=== PATIENT | female | born 1995 | race Caucasian/White ===

== ENCOUNTER 2018-04-04 20:49 | Emergency (ER) | payer OTHER ==
[2018-04-04 21:57] LABS: Urine Blood 1+ (NEG); Urine Glucose NEGATIVE (NEG); Urine Protein NEGATIVE (NEG)
--- NOTE | 2018-04-04 23:00 | EDPHYS ---
Physician Documentation [facility] Name: Alison Wilson Age: 22 yrs Sex: Female : 1995 Arrival Date: 04/04/2018 Time: 20:51 Bed 17 Private MD: ED Physician Mauricio Samaniego HPI: 04/04 21:14 This 22 yrs old Female presents to ER via Ambulatory with complaints of Fever.ps1 21:14 patient has recent diagnosis of melanoma to right perioral area. She is supposed to ps1 have surgery on April 21. Instructed to only take tylenol. She has had fever tmax 103, body aches, sinus congestion, headache for 2 days [employer]. Taking tylenol. No other symptoms. . 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 - Social history:: Smoking status: Patient/guardian denies using tobacco. - Ebola Screening: : Patient negative for fever greater than or equal to 101.5 degrees Fahrenheit, and additional compatible Ebola Virus Disease symptoms Patient denies exposure to infectious person Patient denies travel to an Ebola-affected area in the 21 days before illness onset No symptoms or risks identified at this time. ROS: 21:14 Cardiovascular: Negative for chest pain, palpitations, and edema, Respiratory: Negative ps1 for shortness of breath, cough, wheezing, and pleuritic chest pain, Abdomen/GI: Negative for abdominal pain, nausea, vomiting, diarrhea, and constipation. 21:14 MS/Extremity: Negative for injury and deformity, Skin: Negative for injury, rash, and discoloration, Neuro: Negative for headache, weakness, numbness, tingling, and seizure. 21:14 Constitutional: Positive for chills, fatigue, fever. 21:14 Constitutional: Positive for body aches. Exam: 21:14 Constitutional: This is a well developed, well nourished patient who is awake, alert, ps1 and in no acute distress. Head/Face: Normocephalic, atraumatic. Eyes: Pupils equal round and reactive to light, extra-ocular motions intact. Lids and lashes normal. Conjunctiva and sclera are non-icteric and not injected. Chest/axilla: Normal chest wall appearance and motion. Nontender with no deformity. No lesions are appreciated. Cardiovascular: Regular rate and rhythm. No gallops, murmurs, or rubs. Normal PMI, no JVD. No pulse deficits. Respiratory: Lungs have equal breath sounds bilaterally, clear to auscultation and percussion. No rales, rhonchi or wheezes noted. No increased work of breathing, no retractions or nasal flaring. Abdomen/GI: Soft, non-tender, with normal bowel sounds. No distension or tympany. No guarding or rebound. No evidence of tenderness throughout. Skin: Warm, dry with normal turgor. Normal color with no rashes, no lesions, and no evidence of cellulitis. MS/ Extremity: Pulses equal, no cyanosis. Neurovascular intact. Full, normal range of motion. Neuro: Awake and alert, GCS 15, oriented to person, place, time, and situation. Cranial nerves II-XII grossly intact. Sensory grossly intact. 21:14 Back: pain, that is mild, of the left scapular area, right scapular area and left mid back. Vital Signs: 20:56 BP 141 / 84; Pulse 138; Resp 20; Temp 100.4; Pulse Ox 98% on R/A; Weight 61.23 kg; aj Height 5 ft. 1 in. (154.94 cm); 22:35 BP 116 / 79; Pulse 110; Resp 18 S; Temp 99.7(O); Pulse Ox 95% on R/A; jd3 20:56 Body Mass Index 25.51 (61.23 kg, 154.94 cm) aj MDM: 21:13 Patient medically screened. ps1 04/04 21:21 Order name: Strep ps1 04/04 21:21 Order name: Influenza Screen (a \T\ B) ps1 04/04 21:22 Order name: Group A Streptococcus Rapid Sc; Complete Time: 21:54 EDMS 04/04 21:22 Order name: Influenza Screen (A ; Complete Time: 21:54 EDMS 04/04 21:34 Order name: Urine Dipstick--Ancillary (enter results); Complete Time: 21:58 ms 04/04 21:37 Order name: Urine --Ancillary (enter results); Complete Time: 21:57 ms 04/04 21:21 Order name: Lumbar Spine (3 Views) XRAY ps1 04/04 21:51 Order name: Throat Culture EDMS 04/04 22:31 Order name: Urine Microscopic Only; Complete Time: 23:10 ms 04/04 23:10 Order name: Urine Culture EDMS Administered Medications: No medications were administered Disposition: 04/04/18 22:59 Discharged to Home. Impression: viral syndrome, UTI. - Condition is Stable. - Discharge Instructions: Urinary Tract Infection, Adult, Fever, Adult, [id number]. - Prescriptions for Keflex 500 mg Oral Capsule - take 1 capsule by ORAL route every 8 hours for 10 days; 30 capsule. - Medication Reconciliation Form, Thank You Letter, Antibiotic Education, Prescription Opioid Use form. - Follow up: Private Physician; When: As needed; Reason: Recheck today's complaints, Continuance of care, Re-evaluation by your physician. Follow up: Emergency Department; When: As needed; Reason: Fever > 102 F, Worsening of condition, urinary retention or numbness between the legs. - Problem is new. - Symptoms are unchanged. Signatures: Dispatcher [employer] EDMarcia Mercado RN RN aj Davies, Jonathon, RN RN jd3 Singer, Phillip, MD MD ps1 Corrections: (The following items were deleted from the chart) 23:11 22:59 04/04/2018 22:59 Discharged to Home. Impression: viral syndrome. Condition is ps1 Stable. Forms are Medication Reconciliation Form, Thank You Letter, Antibiotic Education, Prescription Opioid Use. Follow up: Private Physician; When: As needed; Reason: Recheck today's complaints, Continuance of care, Re-evaluation by your physician. Follow up: Emergency Department; When: As needed; Reason: Fever > 102 F, Worsening of condition, urinary retention or numbness between the legs. Problem is new. Symptoms are unchanged. ps1 23:26 23:11 04/04/2018 22:59 Discharged to Home. Impression: viral syndrome; UTI. Condition jd3 is Stable. Discharge Instructions: Fever, Adult, [id number]. Forms are Medication Reconciliation Form, Thank You Letter, Antibiotic Education, Prescription Opioid Use. Follow up: Private Physician; When: As needed; Reason: Recheck today's complaints, Continuance of care, Re-evaluation by your physician. Follow up: Emergency Department; When: As needed; Reason: Fever > 102 F, Worsening of condition, urinary retention or numbness between the legs. Problem is new. Symptoms are unchanged. ps1
--- NOTE | 2018-04-04 23:00 | ER ---
Nurse's Notes [facility] Name: Alison Wilson Age: 22 yrs Sex: Female : 1995 Arrival Date: 04/04/2018 Time: 20:51 Bed 17 Private MD: Diagnosis: viral syndrome;UTI Presentation: 04/04 20:54 Presenting complaint: Patient states: Fever and back pain today. Transition of care: aj patient was not received from another setting of care. Onset of symptoms was April 04, 2018. Risk Assessment: Do you want to hurt yourself or someone else? Patient reports no desire to harm self or others. Initial Sepsis Screen: Does the patient meet any 2 criteria? Temp <36.0*C (96.8*F)) or > 38.3*C (100.4*F). HR > 90 bpm. Yes Does the patient have a suspected source of infection? No. Patient's initial sepsis screen is negative. 20:54 Method Of Arrival: Ambulatory 20:54 Acuity: ALESSANDRA 3 20:57 Care prior to arrival: Medication(s) given: Tylenol, 650 mg. Triage Assessment: 20:56 General: Appears in no apparent distress. comfortable, Behavior is calm, cooperative, aj appropriate for age. Pain: Complains of pain in left scapular area, right scapular area, thoracic area and low back area. Neuro: Level of Consciousness is awake, alert, obeys commands, Oriented to person, place, time, situation, Appropriate for age. Respiratory: Airway is patent Respiratory effort is even, unlabored, Respiratory pattern is regular, symmetrical. : Denies burning with urination. Derm: Skin is intact, is healthy with good turgor, Skin is normal, Skin temperature is hot. 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 - Social history:: Smoking status: Patient/guardian denies using tobacco. - Ebola Screening: : Patient negative for fever greater than or equal to 101.5 degrees Fahrenheit, and additional compatible Ebola Virus Disease symptoms Patient denies exposure to infectious person Patient denies travel to an Ebola-affected area in the 21 days before illness onset No symptoms or risks identified at this time. Screenin:32 Abuse screen: Denies threats or abuse. Nutritional screening: No deficits noted. jd3 Tuberculosis screening: No symptoms or risk factors identified. Fall Risk Ambulatory Aid- None/Bed Rest/Nurse Assist (0 pts). Gait- Normal/Bed Rest/Wheelchair (0 pts) Mental Status- Oriented to own ability (0 pts). Total Dai Fall Scale indicates No Risk (0-24 pts). Assessment: 21:25 General: Appears in no apparent distress. Behavior is calm, cooperative, appropriate jd3 for age, Reports fever for. Pain: Complains of pain in generalized Quality of pain is described as aching, Pain began 1 day ago. Neuro: Level of Consciousness is awake, alert, obeys commands, Oriented to person, place, time, situation, Appropriate for age. Cardiovascular: Capillary refill < 3 seconds Patient's skin is warm and dry. Respiratory: Airway is patent Respiratory effort is even, unlabored, Respiratory pattern is regular, symmetrical, Denies cough, shortness of breath. GI: No signs and/or symptoms were reported involving the gastrointestinal system. : No signs and/or symptoms were reported regarding the genitourinary system. EENT: No signs and/or symptoms were reported regarding the EENT system. Derm: Skin is intact, Skin is dry, Skin is normal, Skin temperature is warm. Musculoskeletal: Circulation, motion, and sensation intact. Range of motion: intact in all extremities. 22:36 Reassessment: Patient appears in no apparent distress at this time. Patient and/or jd3 family updated on plan of care and expected duration. Pain level reassessed. Patient is alert, oriented x 3, equal unlabored respirations, skin warm/dry/pink. 23:25 Reassessment: Patient appears in no apparent distress at this time. Patient and/or jd3 family updated on plan of care and expected duration. Pain level reassessed. Patient is alert, oriented x 3, equal unlabored respirations, skin warm/dry/pink. Patient states feeling better. Vital Signs: 20:56 BP 141 / 84; Pulse 138; Resp 20; Temp 100.4; Pulse Ox 98% on R/A; Weight 61.23 kg; aj Height 5 ft. 1 in. (154.94 cm); 22:35 BP 116 / 79; Pulse 110; Resp 18 S; Temp 99.7(O); Pulse Ox 95% on R/A; jd3 20:56 Body Mass Index 25.51 (61.23 kg, 154.94 cm) ED Course: 20:51 Patient arrived in ED. ds1 20:55 Triage completed. aj 20:56 Arm band placed on right wrist. Patient placed in an exam room. aj 20:58 Mauricio Samaniego MD is Attending Physician. ps1 21:06 Cole Prescott, RN is Primary Nurse. jd3 21:32 Patient has correct armband on for positive identification. Bed in low position. Call j light in reach. Side rails up X 1. Adult w/ patient. 21:32 Influenza Screen (A Sent. jd3 21:32 Strep Sent. jd3 21:32 Influenza Screen (a \T\ B) Sent. jd3 21:32 Group A Streptococcus Rapid Sc Sent. jd3 22:14 Lumbar Spine (3 Views) XRAY In Process Unspecified. EDMS 22:14 Throat Culture Sent. cc 23:25 No provider procedures requiring assistance completed. Patient did not have IV access jd3 during this emergency room visit. Administered Medications: No medications were administered Outcome: 22:59 Discharge ordered by . ps1 23:26 Discharged to home ambulatory, with friend. jd3 23:26 Condition: stable 23:26 Discharge instructions given to patient, friend, Instructed on discharge instructions, follow up and referral plans. medication usage, Demonstrated understanding of instructions, follow-up care, medications, Prescriptions given X 1. 23:26 Patient left the ED. jd3 Signatures: Dispatcher [employer] EDMS Marcia Webb, RN RN Sylvia Lloyd ds1 Lissette Urena Cole Prescott RN RN jd3 Singer, Phillip, MD MD ps1 Corrections: (The following items were deleted from the chart) 20:57 20:54 Care prior to arrival: None. aj aj
[2018-04-04 23:07] LABS: Urine Bacteria 20-50 /HPF (<20); Urine Culture Reflex Order REFLEXED
[2018-04-04 23:09] LABS: Urine RBC NONE SEEN /HPF (NONE SEEN)
--- NOTE | 2018-04-05 07:48 | RAD REPORT ---
EXAM DESCRIPTION: RAD - Lumbar Spine 3 Views - 04/04/2018 10:17 pm CLINICAL HISTORY: Back pain FINDINGS: The alignment of the lumbar spine is satisfactory. No fracture or dislocation is seen. Mild scoliosis involves the thoracolumbar spine
== END 2018-04-04 23:26 | disposition home or self-care (01) ==
LOC: ER 20:49
DX: B34.9 Viral infection, unspecified (principal); N39.0 Urinary tract infection, site not specified; C43.9 Malignant melanoma of skin, unspecified
CPT/HCPCS: 72100; 81003; 81015; 81025; 87070; 87081; 87086; 87088; 87804; 99283

== ENCOUNTER 2020-10-10 11:55 | Emergency (ER) | payer SELFPAY ==
--- OUTSIDE RECORDS SUMMARY | 2020-10-10 11:58 | XMS REPORT | Continuity of Care Document ---
:1995 Author Organization [facility] t Address [address] [place] [address] Care Team Providers Name Role Phone Yan LIND Primary Care Physician Unavailable Yan LIND Attending Clinician Unavailable Vicente PALUMBO I Attending Clinician Nasir Izquierdo MD Attending Clinician Flaquito ERNANDEZ Attending Clinician Payers Payer Name Policy Type Policy Number Effective Date Expiration Date Ryan ARAUJO [facility] [id number] 2018 00:00:00 Problems Condition Condition Condition Status Onset Resolution Last Treating Co mments Source Name Details Category Date Date Treatment Clinician Date Hypertroph Hypertroph Disease Active Overview : ic ic 8-05 Added Andnicko surgical surgical 00:00: automatic n scar scar 00 ally from request for surgery [id number] Malignant Malignant Disease Active Overview: melanoma melanoma 8-13 Lizandro Gilbert o of lip of lip 00:00: automatic n 00 ally from request for surgery [id number] Melanoma Melanoma Disease Active in situ of in situ of 7-10 An derso lip lip 00:00: n 00 Allergies, Adverse Reactions, Alerts This patient has no known allergies or adverse reactions. Social History Social Habit Start Date Stop Date Quantity Comments Source Sex Assigned At MD Hunt on Alcohol intake 2019-06-13 2019-06-13 Current drinker MD Merry pennington 00:00:00 00:00:00 of alcohol (finding) Tobacco use and 2019-06-13 2019-06-13 Never used MD Hunt on exposure 00:00:00 00:00:00 Alcohol Comment 2019-05-20 2019-05-20 last drink: Shaes MD Owen 00:00:00 00:00:00 05/17 Smoking Status Start Date Stop Date Source Never smoker MD Owen Medications Ordered Filled Start Stop Current Ordering Indication Dosage Frequency Signature Comments Components Source Medication Medication Date Date Medication? Clinician (SIG) Name Name acetaminoph Yes 325mg Take 325 M D en 6-15 mg by Anderso (TYLENOL) 14:45: mouth n 325 mg 50 every 4 tablet (four) hours as needed for mild pain. ferrous Yes 325mg Take 325 MD sulfate 325 6-15 mg by Anderso mg (65 mg 14:45: mouth n elemental 50 daily. iron per tablet) tablet acetaminoph 2018-08 Yes Hypertrophi 1{tbl} Take 1 en-codeine 0-08 c surgical tablet by Hudson (TYLENOL-CO 00:00: scar mouth n DEINE #3) 00 twice 300 mg-30 daily. mg tablet mupirocin 2018-08 Yes Hypertrophi Apply (BACTROBAN) 0-04 c surgical topically Anderso 2% ointment 00:00: scar to n 00 affected area(s) twice daily. Apply to right cheek incision Vital Signs Vital Name Observation Time Observation Value Comments Source Systolic blood pressure 2020-04-03 18:11:18 121 mm[Hg] MD Owen Diastolic blood pressure 2020-04-03 18:11:18 81 mm[Hg] MD Owen Heart rate 2020-04-03 18:11:18 82 /min MD Lugo son Body temperature 2020-04-03 18:11:18 36.78 Catarina MD Aline newman Respiratory rate 2020-04-03 18:11:18 16 /min MD Aline newman Oxygen saturation in 2020-04-03 18:11:18 100 /min MD Owen Arterial blood by Pulse oximetry Procedures This patient has no known procedures. Encounters Start End Encounter Admission Attending Care Care Encounter Source Date/Time Date/Time Type Type Clinicians Facility Department ID 2020-04-03 2020-04-03 Outpatient ASHLEY LIND MDA MDA [id number] 12:36:18 14:58:07 [email or web address] spear Results This patient has no known results.
--- NOTE | 2020-10-10 13:29 | RAD REPORT ---
EXAM DESCRIPTION: RAD - Chest Single View - 10/10/2020 1:20 pm CLINICAL HISTORY: Cough;Congestion Chest pain. COMPARISON: No comparisons FINDINGS: Portable technique limits examination quality. Interstitial lung markings are mildly prominent suggesting underlying viral pneumonitis. The heart is normal in size. No displaced fractures.
[2020-10-10] MEDS ORDERED: NA CHLORIDE 0.9% 1,000 ML ONE (14:33)
[2020-10-10 14:42] LABS: Absolute Lymphocytes (CBC) 1.1 K/uL (0.7-4.9); Basophils % 0.7 % (0-1.3); Hematocrit 35.1 % (36.0-45.0); MPV 9.5 fL (7.6-11.3); RBC Red Blood Cell Count 4.56 M/uL (3.86-4.86)
[2020-10-10 15:25] LABS: SARS-COV-2 RT PCR NEGATIVE (NEGATIVE)
[2020-10-10 15:47] LABS: BUN Blood Urea Nitrogen 10 mg/dL (7-18); Bicarbonate 24 mmol/L (21-32); Glucose Level 103 mg/dL (74-106); Potassium 3.6 mmol/L (3.5-5.1); Sodium Level 139 mmol/L (136-145)
--- NOTE | 2020-10-10 16:32 | RAD REPORT ---
EXAM DESCRIPTION: CT - Chest For Pe Angio - 10/10/2020 4:21 pm CLINICAL HISTORY: Chest pain. CHEST PAIN COMPARISON: No comparisons TECHNIQUE: CT angiogram of the pulmonary arteries was performed with MIP. All CT scans are performed using dose optimization technique as appropriate and may include automated exposure control or mA/KV adjustment according to patient size. FINDINGS: No evidence of pulmonary thromboembolism. No acute aortic finding demonstrated. The lungs are clear. No significant pericardial or pleural fluid. No concerning bony finding. IMPRESSION: No evidence of pulmonary thromboembolism. No acute lung findings.
--- NOTE | 2020-10-10 16:41 | EDPHYS ---
Physician Documentation [facility] Name: Alison Wilson Age: 25 yrs Sex: Female : 1995 Arrival Date: 10/10/2020 Time: 12:00 Bed 17 Private MD: ED Physician Ray Jimenez HPI: 10/10 15:15 This 25 yrs old Female presents to ER via Ambulatory with complaints of kb Cough, Congestion, Chest Pain. 15:15 The patient or guardian reports cough, that is intermittent, described as mild, with no kb sputum, flu symptoms, low-grade fever, myalgias. Severity of symptoms: At their worst the symptoms were moderate, in the emergency department the symptoms are unchanged. The patient has not experienced similar symptoms in the past. The patient has not recently seen a physician. 15:16 Onset: The symptoms/episode began/occurred 1 week(s) ago. Modifying factors: The kb symptoms are alleviated by nothing, the symptoms are aggravated by nothing. Associated signs and symptoms: Pertinent positives: chest pain, with cough, fever, rhinorrhea. Pt reports cough, congestion, chest pain with cough, fever, malaise for a week. States she had COVID in June. [employer] ALTERATION: 12:39 LMP 10/06/2020 ca1 Historical: - Allergies: 12:39 No Known Allergies; ca1 - Home Meds: 12:39 None [Active]; ca1 - PMHx: 12:39 melanoma; ca1 - PSHx: 12:39 face surgery; ca1 - Immunization history:: Flu vaccine is not up to date. Patient has never been vaccinated. - Social history:: Smoking status: Patient denies any tobacco usage or history of. ROS: 15:14 Abdomen/GI: Negative for abdominal pain, nausea, vomiting, diarrhea, and constipation, kb MS/Extremity: Negative for injury and deformity, Skin: Negative for injury, rash, and discoloration, Neuro: Negative for headache, weakness, numbness, tingling, and seizure. 15:14 Constitutional: Positive for chills, fatigue, fever, malaise. 15:14 ENT: Positive for sinus congestion. 15:14 Cardiovascular: Positive for chest pain, with cough, Negative for edema, orthopnea, palpitations, paroxysmal nocturnal dyspnea. 15:14 Respiratory: Positive for cough, Negative for dyspnea on exertion, hemoptysis, orthopnea, pleurisy, shortness of breath, sputum production, wheezing. Exam: 15:14 Constitutional: This is a well developed, well nourished patient who is awake, alert, kb and in no acute distress. Head/Face: Normocephalic, atraumatic. ENT: Nares patent. No nasal discharge, no septal abnormalities noted. Tympanic membranes are normal and external auditory canals are clear. Oropharynx with no redness, swelling, or masses, exudates, or evidence of obstruction, uvula midline. Mucous membranes moist. Skin: Warm, dry with normal turgor. Normal color with no rashes, no lesions, and no evidence of cellulitis. MS/ Extremity: Pulses equal, no cyanosis. Neurovascular intact. Full, normal range of motion. 15:14 Cardiovascular: Rate: tachycardic, Rhythm: regular. 15:14 Respiratory: the patient does not display signs of respiratory distress, Respirations: normal, Breath sounds: are clear throughout. 15:14 Neuro: Orientation: is normal, to person, place, time \T\ situation. Mentation: is normal, able to follow commands, Motor: is normal, moves all fours, Gait: is steady, without difficulty. Vital Signs: 12:35 BP 137 / 92; Pulse 130; Resp 18 S; Temp 99.5(O); Pulse Ox 100% on R/A; Weight 65.77 kg ca1 (R); Height 5 ft. 0 in. (152.40 cm) (R); Pain 0/10; 13:54 BP 119 / 81 Supine; Pulse 126; Resp 16; Pulse Ox 99% on R/A; mh5 13:56 BP 125 / 98 Sitting; Pulse 137; Resp 17; Pulse Ox 100% on R/A; mh5 13:58 BP 111 / 80 Standing; Pulse 150; Resp 17; Pulse Ox 98% on R/A; mh5 14:31 BP 123 / 84; Pulse 107; Resp 18; Temp 100.8(O); Pulse Ox 94% on R/A; mh5 15:30 BP 110 / 76; Pulse 115; Resp 17; Pulse Ox 100% ; bp 17:00 BP 115 / 74; Pulse 100; Resp 17; Temp 98; Pulse Ox 100% ; bp 12:35 Body Mass Index 28.32 (65.77 kg, 152.40 cm) ca1 MDM: 12:37 Patient medically screened. kb 15:13 Data reviewed: vital signs, nurses notes. Data interpreted: Pulse oximetry: on room air kb is 94 %. Interpretation: acceptable. 16:40 Counseling: I had a detailed discussion with the patient and/or guardian regarding: the kb historical points, exam findings, and any diagnostic results supporting the discharge/admit diagnosis, lab results, radiology results, the need for outpatient follow up, a family practitioner, to return to the emergency department if symptoms worsen or persist or if there are any questions or concerns that arise at home. 10/10 14:05 Order name: CBC with Diff; Complete Time: 14:50 kb 10/10 14:05 Order name: Basic Metabolic Panel; Complete Time: 15:49 kb 10/10 14:05 Order name: D-Dimer; Complete Time: 14:52 kb 10/10 15:25 Order name: COVID-19/FLU A+B; Complete Time: 15:39 EDMS 10/10 12:30 Order name: Chest Single View XRAY; Complete Time: 13:38 kb 10/10 13:39 Order name: Orthostatics; Complete Time: 14:05 kb 10/10 14:05 Order name: IV Start; Complete Time: 14:30 kb 10/10 14:51 Order name: CT Chest For PE Angio; Complete Time: 16:37 kb 10/10 14:52 Order name: Labs - recollect needed: recollect c7; Complete Time: 15:03 bd Administered Medications: 14:30 Drug: NS 0.9% 1000 ml Route: IV; Rate: 1000 ml; Site: right antecubital; bp 17:14 Follow up: IV Status: Completed infusion; IV Intake: 1000ml bp Disposition: 17:59 Co-signature as Attending Physician, Ray Jimenez MD. rn Disposition: 10/10/20 16:41 Discharged to Home. Impression: Acute upper respiratory infection, unspecified. - Condition is Stable. - Discharge Instructions: Upper Respiratory Infection, Adult, Uhsh-ky-Vges, Viral Respiratory Infection, [id number]. - Medication Reconciliation Form, Thank You Letter, Antibiotic Education, Prescription Opioid Use form. - Follow up: Emergency Department; When: As needed; Reason: Worsening of condition. Follow up: Private Physician; When: 2 - 3 days; Reason: Recheck today's complaints, Continuance of care, Re-evaluation by your physician. Signatures: Dispatcher [employer] EDNV Saurabh Veronique, [employer]-C [employer]-CkYaz Maravilla Roman, MD MD rn Ky Fuller, RN RN bp Acmikaela, Kary RN RN ca1 Corrections: (The following items were deleted from the chart) 14:32 12:31 Influenza Screen (A \T\ B)+BA.LAB.BRZ ordered. EDNV EDMS 14:32 12:31 CORONAVIRUS+MR.LAB.BRZ ordered. EDNV EDMS 17:17 16:41 10/10/2020 16:41 Discharged to Home. Impression: Acute upper respiratory bp infection, unspecified. Condition is Stable. Forms are Medication Reconciliation Form, Thank You Letter, Antibiotic Education, Prescription Opioid Use. Follow up: Emergency Department; When: As needed; Reason: Worsening of condition. Follow up: Private Physician; When: 2 - 3 days; Reason: Recheck today's complaints, Continuance of care, Re-evaluation by your physician. kb
--- NOTE | 2020-10-10 16:41 | ER ---
Nurse's Notes [facility] Name: Alison Wilson Age: 25 yrs Sex: Female : 1995 Arrival Date: 10/10/2020 Time: 12:00 Bed 17 Private MD: Diagnosis: Acute upper respiratory infection, unspecified Presentation: 10/10 12:35 Chief complaint: Patient states: cough, congestion, fever, chest hurts when coughing x ca1 1 week. Coronavirus screen: Client denies travel out of the [place] in the last 14 days. congestion, cough unrelated to allergies, fever, runny nose, Client presents with at least one sign or symptom that may indicate coronavirus-19. Standard/surgical mask placed on the client. Provider contacted for isolation considerations. Client reports previous positive COVID test result. Date of collection: June 2020. Ebola Screen: Patient negative for fever greater than or equal to 101.5 degrees Fahrenheit, and additional compatible Ebola Virus Disease symptoms Patient denies exposure to infectious person. Patient denies travel to an Ebola-affected area in the 21 days before illness onset. No symptoms or risks identified at this time. Initial Sepsis Screen: Does the patient meet any 2 criteria? No. Patient's initial sepsis screen is negative. Does the patient have a suspected source of infection? No. Patient's initial sepsis screen is negative. Risk Assessment: Do you want to hurt yourself or someone else? Patient reports no desire to harm self or others. Onset of symptoms was October 10, 2020. 12:35 Method Of Arrival: Ambulatory ca1 12:35 Acuity: ALESSANDRA 3 ca1 Triage Assessment: 13:40 General: Appears distressed, uncomfortable, ill, Behavior is calm, cooperative, bp appropriate for age. Pain: Complains of pain in chest. EENT: Reports nasal congestion. Neuro: No deficits noted. Cardiovascular: Rhythm is sinus rhythm. Respiratory: Reports shortness of breath cough that is Breath sounds are coarse bilaterally. GI: No signs and/or symptoms were reported involving the gastrointestinal system. : No signs and/or symptoms were reported regarding the genitourinary system. Derm: No deficits noted. Musculoskeletal: No deficits noted. 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 Patient has never been vaccinated. - Social history:: Smoking status: Patient denies any tobacco usage or history of. Screenin:40 Abuse screen: Denies threats or abuse. Denies injuries from another. Nutritional bp screening: No deficits noted. Tuberculosis screening: No symptoms or risk factors identified. Fall Risk None identified. Assessment: 13:40 General: SEE TRIAGE NOTE. bp 15:40 Reassessment: No changes from previously documented assessment. Patient and/or family bp updated on plan of care and expected duration. Pain level reassessed. Patient is alert, oriented x 3, equal unlabored respirations, skin warm/dry/pink. Cardiovascular: Capillary refill < 3 seconds Patient's skin is warm and dry. Respiratory: Airway is patent Respiratory effort is even, unlabored. 17:10 Reassessment: PT D/C HOME AMBULATORY, DX WITH VIRAL URI. Respiratory: Breath sounds are bp coarse bilaterally. Vital Signs: 12:35 BP 137 / 92; Pulse 130; Resp 18 S; Temp 99.5(O); Pulse Ox 100% on R/A; Weight 65.77 kg ca1 (R); Height 5 ft. 0 in. (152.40 cm) (R); Pain 0/10; 13:54 BP 119 / 81 Supine; Pulse 126; Resp 16; Pulse Ox 99% on R/A; mh5 13:56 BP 125 / 98 Sitting; Pulse 137; Resp 17; Pulse Ox 100% on R/A; mh5 13:58 BP 111 / 80 Standing; Pulse 150; Resp 17; Pulse Ox 98% on R/A; mh5 14:31 BP 123 / 84; Pulse 107; Resp 18; Temp 100.8(O); Pulse Ox 94% on R/A; mh5 15:30 BP 110 / 76; Pulse 115; Resp 17; Pulse Ox 100% ; bp 17:00 BP 115 / 74; Pulse 100; Resp 17; Temp 98; Pulse Ox 100% ; bp 12:35 Body Mass Index 28.32 (65.77 kg, 152.40 cm) ca1 ED Course: 12:00 Patient arrived in ED. as 12:29 Veronique Wiley FNP-C [facility] kb 12:29 Ray Jimenez MD is Attending Physician. kb 12:37 Triage completed. ca1 12:39 Arm band placed on right wrist. ca1 13:20 Chest Single View XRAY In Process Unspecified. EDMS 13:34 yK Fuller, RN is Primary Nurse. bp 14:01 Patient has correct armband on for positive identification. Bed in low position. Call [facility] light in reach. Side rails up X 1. Pulse ox on. NIBP on. 14:30 D-Dimer Sent. mh5 14:30 Basic Metabolic Panel Sent. 5 14:31 Initial lab(s) drawn, by nv, sent to lab. Inserted saline lock: 20 gauge in left 5 antecubital area, using aseptic technique. Blood collected. 16:21 CT Chest For PE Angio In Process Unspecified. EDMS 17:00 No provider procedures requiring assistance completed. IV discontinued, intact, bp bleeding controlled, No redness/swelling at site. Pressure dressing applied. Administered Medications: 14:30 Drug: NS 0.9% 1000 ml Route: IV; Rate: 1000 ml; Site: right antecubital; bp 17:14 Follow up: IV Status: Completed infusion; IV Intake: 1000ml bp Intake: 17:14 IV: 1000ml; Total: 1000ml. bp Outcome: 16:41 Discharge ordered by . kb 17:13 Discharged to home ambulatory. bp 17:13 Condition: stable 17:13 Discharge instructions given to patient, Instructed on discharge instructions, follow up and referral plans. Demonstrated understanding of instructions, follow-up care. 17:17 Patient left the ED. bp Signatures: Dispatcher [employer] EDMO Veronique Wiley FNP-C COMMUNICATIONS ASSISTANT-Harriett De La Fuente Maria [facility] [place] Fuller, RN RN bp Kary Quezada RN RN ca1
[2020-10-10 19:30] VITALS: O2SAT 100
[2020-10-10 19:32] VITALS: BP 115/74; TEMP 98
== END 2020-10-10 17:17 | disposition home or self-care (01) ==
LOC: ER 11:55
DX: J06.9 Acute upper respiratory infection, unspecified (principal); Z20.822 Contact with and (suspected) exposure to COVID-19; Z85.820 Personal history of malignant melanoma of skin; Z86.16 Personal history of COVID-19
CPT/HCPCS: 0240U; 36415; 71045; 71275; 80048; 85025; 85379; 96360; 96361; 99284; J7030; Q9967

== ENCOUNTER 2022-08-28 07:09 | Emergency (ER) | payer OTHER, SELFPAY ==
--- OUTSIDE RECORDS SUMMARY | 2022-08-28 07:12 | XMS REPORT | Clinical Summary ---
:1995 Author Organization [facility] MD [facility] Address [address] [place] [address] Care Team Providers Name Role Phone Benjamín Zhang MD Primary Care Provider Allergies No known active allergies Medications Medication Sig Dispensed Refills Start Date End Date Status buPROPion Take 100 mg by 0 12/04/2021 Acti ve (WELLBUTRIN) 100 mouth daily. mg tablet mupirocin Apply 22 g 0 03/01/2021 Discontin ued (BACTROBAN) 2% topically to 2 (T herapy ointmentIndicatio affected co mpleted) ns: Hypertrophic area(s) daily. 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 Encounters Date Type Specialty Care Team Description 12/27/2021 Office Visit Dermatology Handy Moreno MD Scar (Primar y Dx); Melanoma in sit u of lip; Melanocytic nev us of trunk; Lentigo 12/27/2021 Travel 11/12/2021 Office Visit Melanoma Surgery Benjamín Zhang MD Luz chris in situ of lip 11/12/2021 Travel after 08/28/2021 Surgical History Surgery Date Site/Laterality Comments [place] EXCISION MALIGNANT LESION 04/21/2018 Right Pro cedure: EXCISION OF F/E/E/N/L 0.5 CM/< MALIGNANT LES ION OF LIP(S) - wide excision ri ght upper lip; Surgeon: Me neto Zhang MD; Location: [facility]; Service: SURG ON C - MELANOMA W[place] ADJT TIS TRNSFR/REARRGMT 04/23/2018 Right Proc edure: REARRANGEMENT OF E/N/E/L DFCT 10 SQ CM/< ADJACENT TISSUE FOR REPAIR OF DEFECT OF LIP(S) Rylie Murphy vs facial advanceme nt; Surgeon: Kallie brown II, MD; Location: MAIN O R; Service: PLS - PLASTIC [facility] [place] INJECTION INTRALESIONAL UP 02/25/2019 Right Pr ocedure: INTRALESIONAL TO & INCLUD 7 LESIONS INJECTION to right lip lesion- Kenalog 40 and lidocaine 1:100; Surgeon: Kallie brown II, MD; Location[facility]; Service: PLS - PLASTIC [facility] Medical devices from this surgery are in t he Medical Devices section. [place] INJECTION INTRALESIONAL UP 03/25/2019 Face/Right Pr ocedure: INTRALESIONAL TO & INCLUD 7 LESIONS INJECTION of kenalog to right cheek.; Surgeon: Kallie Izquierdo II, MD; Location: [facility]; Service : PLS - PLASTIC SURGERY WY ADJT TIS TRNS/REARGMT 05/20/2019 Right Procedu re: SUBTOTAL EXCISION F/C/C/M/N/A/G/H/F 10SQCM/< OF SC AR AND REARRANGEMENT OF ADJACENT TISSUE FOR REPAIR OF DEFECT OF CHEEK ; Surgeon: Kallie brown II, MD; Location: [facility]; Service: PLS - PLASTIC [facility] [place] ADJT TIS TRNS/REARGMT 06/03/2019 Face/Right Procedu re: REARRANGEMENT OF F/C/C/M/N/A/G/H/F 10SQCM/< ADJAC ENT TISSUE FOR REPAIR OF DEFECT OF CHEEK( S); re-advancement o f V-Y flap; Surgeon: Kallie Izquierdo II, MD; Location : MAIN OR; Service: PLS - P LASTIC SURGERY WY REPAIR COMPLEX 06/03/2019 Face/Right Procedure: COM PLEX REPAIR OF F/C/C/M/N/AX/G/H/F 1.1-2.5 CM CH RAMONA(S); revision of scar; Surgeon: Kallie Izquierdo II, MD; Location : MAIN OR; Service: PLS - P LASTIC SURGERY WY EXC B9 LESION MRGN XCP SK 01/28/2021 Face/Right Pro cedure: EXCISION OF BENIGN TG F/E/E/N/L/M 0.5CM/< LESION OF FACE/EAR/EYELID/ NOSE/LIP/MUCO US MEMB, INCL MA RGINS (EXCEPT SKIN TAG); Surge on: Kallie Izquierdo II, MD; Location: MAIN OR; Service : PLS - PLASTIC SURGERY WY REPAIR COMPLEX 03/01/2021 Face/Right Procedure: COM PLEX REPAIR OF F/C/C/M/N/AX/G/H/F 1.1-2.5 CM CH RAMONA(S); Surgeon: Kallie Izquierdo II, MD; Location: [facility]; Service : PLS - PLASTIC SURGERY Medical History Medical History Date Comments 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 Hypertrophic scar Personal history of COVID-19 06/2020 Postoperative nausea and vomiting Family History Medical History Relation Name Comments -Unknown cancer Maternal Grandfather Brain cancer Maternal Grandmother Relation Name Status Comments Maternal Grandfather Maternal Grandmother Social History Tobacco Use Types Packs/Day Years Used Date Smoking Tobacco: Never Smokeless Tobacco: Never Tobacco Cessation: Ready to Quit: No Alcohol Use Standard Drinks/Week Comments Yes 3 (1 standard drink = 0.6 oz pure alcoho l) Sex Assigned at Date Recorded Female 11/30/2020 11:53 AM CDT Job Start Date Occupation Industry Not on file Not on file Not on file Obstetrics History Para Term AB IAB SAB Ectopic Multiple Living Live Births 0 0 0 0 0 0 0 0 0 0 0 Comments Age of menarche: 13 Use of oral contraceptives or hormone re placement therapy: None Patient denies any history of abnormal P ap smears and reports that her last Pap smear was in 2017 Patient denies any history of breast bio psies. Last Filed Vital Signs Vital Sign Reading Time Taken Comments Blood Pressure 117/80 12/27/2021 9:06 AM CDT Pulse 101 12/27/2021 9:06 AM CDT Temperature 36.8 C (98.2 F) 12/27/2021 9:06 AM CDT Respiratory Rate 16 12/27/2021 9:06 AM CDT Oxygen Saturation - - Inhaled Oxygen Concentration - - Weight - - Height - - Body Mass Index - - Plan of Treatment Date Type Specialty Care Team Description 11/27/2022 Follow-Up Melanoma Surgery Benjamín Zhang MD [address] [place], [place] [address] (Wo rk) 11/27/2022 Follow-Up Dermatology Handy Moreno MD [address] [place], [place] [address] (Wo rk) Health Maintenance Due Date Last Done Comments COVID-19 Vaccination (#1) 03/17/1995 Medical Devices Implanted Type Area Cutter Operator Helper Device Shelf Model / Identifier Expiration Date Ser ial / Lot Sheeting Silicone Reinf .040 - [id number] Skin/Tissu [employer] 01/25/2020 [id number]-[id number] / Implanted: Qty: 1 on 02/25/2019 by Kallie Izquierdo II, MD at [facility] e / [id number] Results Not on fileafter 08/28/2021 Advance Directives Code Status Date Activated Date Inactivated Comments Full Code 03/01/2021 1:53 PM 03/01/2021 7:48 PM Code Status Date Activated Date Inactivated Comments Full Code 01/28/2021 3:56 PM 01/28/2021 6:04 PM Full Code 06/03/2019 8:44 AM 06/03/2019 2:27 PM Full Code 05/20/2019 11:34 AM 05/20/2019 3:17 PM Full Code 03/25/2019 10:23 AM 03/25/2019 3:20 PM Care Teams Second Time Worker Relationship Specialty Start Date End Date Benjamín Zhang MD PCP - General Melanoma Surgery 02/04/[address] [place] [id number]
--- OUTSIDE RECORDS SUMMARY | 2022-08-28 07:13 | XMS REPORT | Continuity of Care Document ---
:1995 Author Organization [facility] t Address [address] [place] [address] Care Team Providers Name Role Phone [phone] Primary Care Physician Unavailable Handy Estrada MD Attending Clinician CRISTIN TAYLOR Attending Clinician Unavailable Cristin Hernandez Attending Clinician Abdullahi Lind MD, I Attending Clinician ABDULLAHI LIND I Attending Clinician Unavailable Akil Denis Attending Clinician DESMOND MATHEWS Attending Clinician Unavailable Doctor Unassigned, [place] Attending Clinician Unavailable HANDY ESTRADA Attending Clinician Unavailable RADHA FINK K.HJayne Attending Clinician Unavailable Radha Fink MD K.HJayne Attending Clinician Ashlie Vega DO Attending Clinician Hayley Garner NP Attending Clinician HAYLEY GARNER Attending Clinician Unavailable WEI COHEN Attending Clinician Unavailable GRACIA BELLA II Attending Clinician Unavailable FAY WONG Attending Clinician Unavailable GRACIA BELLA II Admitting Clinician Unavailable Payers Payer Name Policy Type Policy Number Effective Date Expiration Date S [facility] [id number] 2021 00:00:00 [place] [id number] 2021 00:00:00 AETNA HMO [id number] 2020 00:00:00 Problems Condition Condition Condition Status Onset Resolution Last Treating Co mments Source Name Details Category Date Date Treatment Clinician Date Nipple Nipple Disease Active Univers discharge discharge 5-12 ity of 00:00: [place] 00 MD [facility] Hypertroph Hypertroph Disease Active Overview : Univers ic ic 8-05 Formattin ity of surgical surgical 00:00: g of this [place] scar scar 00 note might be [place] different n from the Cancer original. Center Added automatic ally from request for surgery [id number] Malignant Malignant Disease Active Overview: Univers melanoma melanoma 8-13 Formattin ity of of lip of lip 00:00: g of this [place] 00 note might be Andamanda different n from the Cancer original. Center Added automatic ally from request for surgery [id number] Melanoma Melanoma Disease Active Unive rs in situ of in situ of 7-10 it y of lip lip 00:00: [place] 00 MD [facility] No known No known Disease Unive rs active active ity of problems problems [facility] Allergies, Adverse Reactions, Alerts Allergy Allergy Status Severity Reaction(s) Onset Inactive Treating Comm ents Source Name Type Date Date Clinician NO KNOWN Drug Active Univers ALLERGIE Class ity of S [facility] Family History Family Member Diagnosis Comments Start Date Stop Date Source Maternal grandfather -Unknown cancer [facility] Maternal grandmother Brain cancer Un iversity of [facility] Social History Social Habit Start Date Stop Date Quantity Comments Source Exposure to Not sure University of SARS-CoV-2 [facility] (event) [place] Tobacco use and 2021-05-10 2021-05-10 Never used Universit y of exposure 00:00:00 00:00:00 [facility] Alcohol intake 2021-03-05 2021-03-05 Current drinker Unive rsity of 00:00:00 00:00:00 of alcohol [place] MD [facility] (finding[facility] Sex Assigned At [birth year] Universit y of 00:00:00 00:00:00 [facility] Smoking Status Start Date Stop Date Source Never smoker [facility] Medications Ordered Filled Start Stop Current Ordering Indication Dosage Frequency Signature Comments Components Source Medication Medication Date Date Medication? Clinician (SIG) Name Name buPROPion Yes 100mg Take 100 Uni vers (WELLBUTRIN 4-20 mg by ity of ) 100 mg 00:00: mouth [place] tablet 00 daily. MD [facility] methylPREDN Yes [id number] Take by Univers ISolone 4-14 mouth ity of (MEDROL, 00:00: SEE-INSTRU [place] as JULIANA,) 4 mg 00 CTIONS. Medica l tablets follow [place] package directions amoxicillin 2021- No [id number] 1{tbl} Take 1 Univers -clavulanat 4-14 12-06 tablet by it y of e 875-125 00:00: 04:59 [place] mg per 00 :00 (two) Medical tablet times [place] daily for 7 days. FLUoxetine 2021- No TAKE 1 Univ ers (PROzac) 10 3-15 05-13 CAPSULE BY i ty of mg capsule 00:00: 00:00 MOUTH [place] 00 :00 EVERY DAY MD [facility] No known No Univers medications 9-28 ity of 00:31: [address] No known No Univers medications 9-28 ity of 00:31: [address] No known No Univers medications 9-28 ity of 00:31: [address] No known No Univers medications 9-28 ity of 00:31: [address] No known 0 No Univers medications 9-28 ity of 00:31: [address] No known 0 No Univers medications 9-28 ity of 00:31: [address] No known No Univers medications 9-28 ity of 00:31: [address] mupirocin 2021- No Hypertrophi Apply Univers (BACTROBAN) 7-16 04-13 c surgical topically ity of 2% ointment 00:00: 00:00 scar to [place] 00 :00 affected MD briceño(s) Anderso daily. n [facility] Vital Signs Vital Name Observation Time Observation Value Comments Source Systolic blood 2021-11-28 19:08:00 128 mm[Hg] Univer sity of pressure [facility] Diastolic blood 2021-11-28 19:08:00 83 mm[Hg] Unive rsity of pressure [facility] Heart rate 2021-11-28 19:06:00 96 /min Universi ty of [facility] Body temperature 2021-11-28 19:06:00 36.83 Catarina Univ ersity of [facility] Respiratory rate 2021-11-28 19:06:00 18 /min Univ ersity of [facility] Body height 2021-11-28 19:06:00 154.9 cm Universi ty [facility] Body weight 2021-11-28 19:06:00 66.044 kg Universi ty [facility] BMI 2021-11-28 19:06:00 27.51 kg/m2 Universi ty [facility] Oxygen saturation in 2021-11-28 19:06:00 99 /min University of Arterial blood by [facility] Pulse oximetry Branch Systolic blood 2021-05-30 13:05:00 110 mm[Hg] Univer sity of pressure [facility] Diastolic blood 2021-05-30 13:05:00 71 mm[Hg] Unive rsity of pressure [facility] Heart rate 2021-05-30 13:05:00 79 /min Universi ty [facility] Body height 2021-05-30 13:05:00 152.4 cm Universi ty [facility] Body weight 2021-05-30 13:05:00 68.04 kg Universi ty [facility] BMI 2021-05-30 13:05:00 29.29 kg/m2 Universi [facility] Systolic blood 2021-05-10 20:42:00 113 mm[Hg] Univer sity of pressure [facility] Diastolic blood 2021-05-10 20:42:00 74 mm[Hg] Unive rsity of pressure [facility] Heart rate 2021-05-10 20:42:00 98 /min Universi ty [facility] Body weight 2021-05-10 20:42:00 66.225 kg Universi ty [facility] Oxygen saturation in 2021-05-10 20:42:00 99 /min [facility] Arterial blood by [facility] Pulse oximetry Branch Systolic blood 2021-12-27 14:06:56 117 mm[Hg] Univer sity of pressure [facility] Diastolic blood 2021-12-27 14:06:56 80 mm[Hg] Unive rsity of pressure Latos[facility] Heart rate 2021-12-27 14:06:56 101 /min Universi ty [facility] MD [facility] Body temperature 2021-12-27 14:06:56 36.78 [facility]ina [facility] Respiratory rate 2021-12-27 14:06:56 16 /min [facility] Procedures Procedure Date / Time Performing Clinician Source Performed POCT MOLECULAR STREP 2021-11-28 19:11:00 Cristin Taylor [facility] REFUSAL OF NON-MEDICAL 2021-08-13 06:01:00 Doctor Unassigned, No [facility] SERVICES Name [facility] TRANSTHORACIC ECHO (TTE) 2021-05-30 13:39:15 Radha Fink [facility] Plan of Care Planned Activity Planned Date Details Comments Source Future Scheduled 2022-07-02 COVID-19 Vaccination Uni [facility] Test 11:01:51 (#1) [code = COVID-19 Cancer Vaccination (#1)] Center Encounters Start End Encounter Admission Attending Care Care Encounter Source Date/Time Date/Time Type Type Clinicians Facility Department ID 2021-06-18 Emergency [facility] [id number] Univers 01:47:46 ity of [facility] 2021-12-27 2021-12-27 Office Handy Estrada 1.2.840.1 [id number] Univers 08:45:00 09:35:19 Visit 15980.1.1 ity of 3.412.2.7 Lat[place] .3.559120 .8 [facility] 2021-12-27 2021-12-27 Travel 1.2.840.1 [id number] Univers 00:00:00 00:00:00 97664.1.1 350.1.13.41 ity of 3.412.2.7 [place].3.698 [place] .3.537[place] 084.8 .8 [facility] 2021-11-28 2021-11-28 Outpatient Carolina TAYLOR [facility] [id number] Univers 14:20:00 14:44:53 CRISTIN ity of [facility] 2021-11-28 2021-11-28 [facility] 1.2.840.114 [id number] Univers 14:20:00 14:40:00 [facility] 350.1.13.10 it y of [place] 4.2.7.2.686 [place] SYED?BLEA [phone] [address] OFFICE [facility] 2021-11-12 2021-11-12 Office Romel Lind.2.840.1 [id number] Univers 12:00:00 12:40:03 Visit Abdullahi Heredia 26329.1.1 it y of 3.412.2.7 [place] .3.012526 .8 [facility] 2021-11-12 2021-11-12 Outpatient ASHLEY LIND MDA [facility] [id number] MD 11:45:28 12:40:03 ABDULLAHI spear 2021-11-12 2021-11-12 Travel 1.2.840.1 [id number] [id number] Univers 00:00:00 00:00:00 22934.1.1 350.1.13.41 ity of 3.412.2.7 2.[place]7.3.698 [place] .3.313488 084.8 .8 [facility] [place] 2021-08-28 2021-08-28 Letter EVELINE Denis 1.2.840.114 [id number] Univers 00:00:00 00:00:00 (Out) Akil HU 350.1.13.10 it y of [facility] 4.2.7.2.686 [place] [phone] [address] 2021-08-23 2021-08-23 Outpatient Carolina MATHEWS [facility] [id number] Univers 13:30:00 13:30:00 DESMOND ity [facility] 2021-08-13 2021-08-13 Orders Doctor EVELINE 1.2.840.114 [id number] Univers 00:00:00 00:00:00 Only Unassigned, FRITZ 350.1.13.10 ity of [place] [facility] 4.2.7.2.686 [place] [phone] [address] 2021-06-20 2021-06-20 Outpatient HANDY COTO MDA MDA [id number] 14:40:59 14:59:50 Gilbert o beatris 2021-06-07 2021-06-07 Outpatient R [facility] [id number] Univers 14:30:00 14:30:00 SENDIL ity [facility] 2021-06-04 2021-06-04 Telephone [facility] [id number] [id number] Univers 00:00:00 00:00:00 Sendil Helena Roach 350.1.13.10 ity [place]2.[place] Profess[place] [phone] Ma dical nal 059 [facility] 2021-05-30 2021-05-30 [facility] 1.2.840.114 [id number] Univers 08:00:00 23:59:00 Encounter Sendsravani Roach 350.1.13.10 ity [place]2.[place] [phone] Ma dical nal 843 [facility] 2021-05-30 2021-05-30 Outpatient R [facility] [id number] Univers 08:00:00 08:00:00 SENDIL ity [facility] 2021-05-28 2021-05-28 Telephone [facility] [id number] Univers 00:00:00 00:00:00 Sendil Helena Roach 350.1.13.10 ity [place]2.[place] [phone] Ma dical nal 059 [facility] 2021-05-14 2021-05-14 Emergency [facility] 1.2.840.114 [id number] Univers 00:27:00 03:27:00 Ashlie [place] 350.1.13.10 ity [place]2.686 [place] [phone] [address] 2021-05-10 2021-05-10 [facility] 1.2.840.114 [id number] Univers 16:26:19 23:59:00 Encounter Radha Ro[place] 350.1.13.10 ity [place]2.[place] [phone] Ma dical nal 846 [facility] 2021-05-10 2021-05-10 Office [facility] 1.2.840.114 [id number] Univers 15:31:58 16:40:13 Visit Radha Ro[place] 350.1.13.10 ity [place]2.[place] [phone] Ma dical nal 059 [facility] 2021-05-10 2021-05-10 Outpatient R [facility] [id number] Univers 15:30:00 15:30:00 SENDIL shaquille [facility] 2021-05-06 2021-05-[address] [facility] [id number] Univers 18:43:00 21:23:00 Hayley [place] 350.1.13.10 ity [place]2.686 [place] [phone] [address] 2021-05-06 2021-05-06 Emergency X [facility] ERT [id number] Univers 18:30:00 18:30:00 HAYLEY corbin [facility] 2021-03-08 2021-03-08 Outpatient ASHLEY COHEN MDA MDA [id number] 07:25:23 08:15:08 WEI verdin n 2021-03-01 2021-03-01 Outpatient ASHLEY BELLA MDA [employer]astic [id number] 08:29:00 17:05:00 MILANA MONSIVAISE Surg And erso n 2021-03-01 2021-03-01 Outpatient ASHLEY WONG MDA MDA [id number] 08:04:49 08:28:00 FAY spear 2021-02-28 2021-02-28 Outpatient ASHLEY COHEN MDA MDA [id number] 08:19:08 08:19:08 WEI spear 2021-02-28 2021-02-28 Outpatient ASHLEY COHEN MDA MDA [id number] 07:16:09 08:02:19 WEI spear 2020-11-19 2020-11-19 Outpatient ASHLEY BELLA MDA MDA [id number] 07:59:45 11:23:07 II, MILANAE And erso n 2020-10-25 2020-10-25 Outpatient HANDY COTO MDA MDA [id number] 11:16:47 14:28:31 Gilbert spear 2020-10-25 2020-10-25 Outpatient ASHLEY LIND MDA MDA [id number] 11:15:08 12:13:33 ABDULLAHI spear 2020-04-03 2020-04-03 Outpatient ASHLEY LIND MDA MDA [id number] 12:36:18 14:58:07 ABDULLAHI spear Results Test Description Test Time Test Comments Results Result Comments Source POCT MOLECULAR STREP 2021-11-28 19:18:47 Test Item Value Reference Range Interpretation Comme nts POCT Molecular Strep (test code = 79808-8) Negative Negative Lab Interpretation (test code = 61031-5) [facility]
[2022-08-28 07:31] LABS: Urine Blood Trace-intact (Negative); Urine Glucose Negative (Negative); Urine Protein Negative (Negative); Urine Specific Gravity 1.025 (1.005-1.030); Urine pH 5.5 (5.0-7.0)
[2022-08-28] MEDS ORDERED: KETOROLAC 30 MG/ML INJ ONE (07:44)
[2022-08-28] MEDS ORDERED: NA CHLORIDE 0.9% 1,000 ML ONE (07:44)
[2022-08-28] MEDS ORDERED: ONDANSETRON 4 MG/2 ML VIAL ONE (07:44)
[2022-08-28 07:47] LABS: Absolute Lymphocytes (CBC) 2.5 K/uL (0.7-4.9); Hematocrit 39.3 % (36.0-45.0); Lymphocytes % 36.8 % (15.3-44.8); MCV 81.8 fL (80-100)
[2022-08-28 08:01] LABS: Bilirubin Total 0.2 mg/dL (0.2-1.0); Potassium 3.9 mmol/L (3.5-5.1); Protein, Total 8.1 g/dL (6.4-8.2)
[2022-08-28 08:10] LABS: Urine Specific Gravity/Preg 1.025 (1.005-1.030)
--- NOTE | 2022-08-28 08:45 | RAD REPORT ---
EXAM DESCRIPTION: CT - Abdomen Pelvis W Contrast - 08/28/2022 8:29 am CLINICAL HISTORY: Abdominal pain COMPARISON: 2020 TECHNIQUE: Computed axial tomography of the abdomen pelvis was obtained. 100 cc Isovue-300 was admin istered intravenously. Oral contrast was not requested which limits evaluation of bowel and appendix All CT scans are performed using dose optimization technique as appropriate and may include automated exposure control or mA/KV adjustment according to patient size. FINDINGS: The spleen,, pancreas, adrenal and kidneys appear unremarkable. There is no evidence of diverticulitis. Normal appendix. 9 millimeter low-density lesion right lobe of the liver 2 centimeter right ovarian cysts which is irregularly shaped IMPRESSION: 2 centimeter right ovarian cysts which is irregularly shaped likely has recently rupture d. No significant free fluid 9 millimeter low-density lesion liver is nonspecific. Further evaluation with nonemergent ultrasound recommended
--- NOTE | 2022-08-28 09:17 | EDPHYS ---
Physician Documentation [facility] Name: Alison Wilson Age: 26 yrs Sex: Female : 1995 Arrival Date: 08/28/2022 Time: 07:13 Bed 17 Private MD: Cas Levy E ED Physician Garrett Owen HPI: 08/28 10:57 This 26 yrs old Female presents to ER via Ambulatory with complaints of Abdominal Pain. kb 10:57 The patient presents with abdominal pain right lower quadrant. Onset: The kb symptoms/episode began/occurred yesterday. The symptoms do not radiate. Associated signs and symptoms: Pertinent positives: fever, nausea, vomiting, Pertinent negatives: diarrhea. The symptoms are described as constant. Modifying factors: The symptoms are alleviated by nothing, the symptoms are aggravated by pressure. Severity of pain: At its worst the pain was moderate in the emergency department the pain is unchanged. The patient has not experienced similar symptoms in the past. The patient has not recently seen a physician. Pt reports nausea, vomiting, chills and lower abd pain yesterday. Pain localized in RLQ today. 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 - Social history:: Smoking status: Patient denies any tobacco usage or history of. ROS: 10:56 Constitutional: Negative for fever, chills, and weight loss. kb 10:56 Abdomen/GI: Positive for abdominal pain, nausea and vomiting, Negative for diarrhea. 10:56 All other systems are negative. Exam: 10:57 Constitutional: This is a well developed, well nourished patient who is awake, alert, kb and in no acute distress. Head/Face: Normocephalic, atraumatic. ENT: Moist Mucous membranes Cardiovascular: Regular rate and rhythm with a normal S1 and S2. No gallops, murmurs, or rubs. No pulse deficits. Respiratory: Respirations even and unlabored. No increased work of breathing. Talking in full sentences Skin: Warm, dry with normal turgor. Normal color. MS/ Extremity: Pulses equal, no cyanosis. Neurovascular intact. Full, normal range of motion. Neuro: Awake and alert, GCS 15, oriented to person, place, time, and situation. Moves all extremities. Normal gait. Psych: Awake, alert, with orientation to person, place and time. Behavior, mood, and affect are within normal limits. 10:57 Abdomen/GI: Inspection: abdomen appears normal, Bowel sounds: normal, Palpation: soft, in all quadrants, moderate abdominal tenderness, in the right lower quadrant. Vital Signs: 07:18 BP 152 / 89; Pulse 129; Resp 16 S; Temp 98.6(TE); Pulse Ox 100% on R/A; Weight 68.04 kg aa5 (R); Height 5 ft. 1 in. (154.94 cm) (R); 08:30 BP 119 / 71; Pulse 103; Resp 18; Pulse Ox 100% ; bp 09:40 BP 118 / 68; Pulse 81; Resp 16; Pulse Ox 100% ; bp 07:18 Body Mass Index 28.34 (68.04 kg, 154.94 cm) aa5 MDM: 07:15 Patient medically screened. kb 10:55 Differential diagnosis: appendicitis, Ectopic , non-specific abd pain, ovarian kb cyst. Data reviewed: vital signs, nurses notes. Consideration of Admission/Observation Escalation of care including admission/observation considered. I considered the following discharge prescriptions or medication management in the emergency department Antibiotics: At this time antibiotics are not recommended. Counseling: I had a detailed discussion with the patient and/or guardian regarding: the historical points, exam findings, and any diagnostic results supporting the discharge/admit diagnosis, lab results, radiology results, the need for outpatient follow up, an OB/Gyne specialist, to return to the emergency department if symptoms worsen or persist or if there are any questions or concerns that arise at home. 08/28 07:22 Order name: CBC with Diff; Complete Time: 07:53 kb 08/28 07:22 Order name: CMP; Complete Time: 08:02 kb 08/28 07:22 Order name: Lipase; Complete Time: 08:02 kb 08/28 07:22 Order name: CT Abd/Pelvis - IV Contrast Only; Complete Time: 08:46 kb 08/28 07:32 Order name: Urine Dipstick-Ancillary; Complete Time: 07:53 EDMS 08/28 07:40 Order name: Urine --Ancillary (enter results); Complete Time: 08:19 em1 08/28 07:22 Order name: IV Saline Lock; Complete Time: 07:41 kb 08/28 07:22 Order name: Labs collected and sent; Complete Time: 07:41 kb 08/28 07:22 Order name: Urine Dipstick-Ancillary (obtain specimen); Complete Time: 07:39 kb 08/28 07:22 Order name: Urine Test (obtain specimen); Complete Time: 07:39 kb Administered Medications: 07:45 Drug: NS 0.9% 1000 ml Route: IV; Rate: 1000 ml; Site: right antecubital; bp 09:41 Follow up: IV Status: Completed infusion; IV Intake: 1000ml bp 07:45 Drug: Zofran (Ondansetron) 4 mg Route: IVP; Site: right antecubital; bp 09:41 Follow up: Response: No adverse reaction bp 07:45 Drug: Ketorolac 15 mg Route: IVP; Site: right antecubital; bp 09:41 Follow up: Response: Pain is decreased bp Disposition Summary: 08/28/22 09:17 Discharge Ordered Location: Home kb Condition: Stable kb Diagnosis - Other ovarian cysts kb Followup: kb - With: Emergency Department - When: As needed - Reason: Worsening of condition Followup: kb - With: Private Physician - When: 2 - 3 days - Reason: Recheck today's complaints, Continuance of care, Re-evaluation by your physician Discharge Instructions: - Discharge Summary Sheet kb - Ovarian Cyst, [id number] kb Forms: - Medication Reconciliation Form kb - Thank You Letter kb - Antibiotic Education kb - Prescription Opioid Use kb - Work release form [id number] Prescriptions: - Diclofenac Sodium 75 mg Oral tablet,delayed release (DR/EC) - take 1 tablet by ORAL route 2 times per day As needed; 30 tablet; Refills: 0, kb Product Selection Permitted Addendum: 08/29/2022 13:29 Co-signature as Attending Physician, Garrett Owen MD I agree with the assessment and c ennis plan of care. Signatures: Dispatcher [employer] Veronique Orr, CLAUDIA-C CLAUDIA-Garrett Guillermo MD MD cha Calderon, Audri, RN RN aa5 Ky Fuller RN RN bp Corrections: (The following items were deleted from the chart) 08/28 10:57 10:56 Abdomen/GI: Positive for abdominal pain, kb kb
--- NOTE | 2022-08-28 09:17 | ER ---
Nurse's Notes [facility] Name: Alison Wilson Age: 26 yrs Sex: Female : 1995 Arrival Date: 08/28/2022 Time: 07:13 Bed 17 Private MD: Cas Levy E Diagnosis: Other ovarian cysts Presentation: 08/28 07:18 Chief complaint: Patient states: intermittent abd pain that began yesterday. Pt reports aa5 she vomited once yesterday. Pt reports nausea. Coronavirus screen: nausea. Ebola Screen: Patient denies travel to an Ebola-affected area in the 21 days before illness onset. Initial Sepsis Screen: Does the patient meet any 2 criteria? HR > 90 bpm. Does the patient have a suspected source of infection? No. Patient's initial sepsis screen is negative. Risk Assessment: Do you want to hurt yourself or someone else? Patient reports no desire to harm self or others. Onset of symptoms was August 2022. 07:18 Method Of Arrival: Ambulatory aa5 07:18 Acuity: ALESSANDRA 3 aa5 Triage Assessment: 07:20 General: Appears in no apparent distress. uncomfortable, Behavior is cooperative, bp appropriate for age, anxious. Pain:. EENT: No deficits noted. Neuro: No deficits noted. Cardiovascular: No deficits noted. Respiratory: No deficits noted. GI: Reports upper abdominal pain, nausea. : No signs and/or symptoms were reported regarding the genitourinary system. Derm: No deficits noted. Musculoskeletal: No deficits noted. 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 - Social history:: Smoking status: Patient denies any tobacco usage or history of. Screenin:30 [facility] ED Fall Risk Assessment (Adult) History of falling in the last 3 months, bp including since admission No falls in past 3 months (0 pts). Abuse screen: Denies threats or abuse. Denies injuries from another. Nutritional screening: No deficits noted. Tuberculosis screening: No symptoms or risk factors identified. Assessment: 07:20 General: SEE TRIAGE NOTE. bp 08:53 Reassessment: PT RETURNED FROM CT. bp 09:40 Reassessment: PT DC HOME AMBULATORY. bp Vital Signs: 07:18 BP 152 / 89; Pulse 129; Resp 16 S; Temp 98.6(TE); Pulse Ox 100% on R/A; Weight 68.04 kg aa5 (R); Height 5 ft. 1 in. (154.94 cm) (R); 08:30 BP 119 / 71; Pulse 103; Resp 18; Pulse Ox 100% ; bp 09:40 BP 118 / 68; Pulse 81; Resp 16; Pulse Ox 100% ; bp 07:18 Body Mass Index 28.34 (68.04 kg, 154.94 cm) aa5 ED Course: 07:13 Patient arrived in ED. am2 07:13 Cas Levy MD is Private Physician. am2 07:15 Veronique Wiley F[facility]-C [facility] kb 07:15 Garrett Owen MD is Attending Physician. kb 07:18 Arm band placed on. aa5 07:19 Triage completed. aa5 07:33 Ky Fuller, GLADYS is Primary Nurse. bp 07:33 Missed attempt(s): 20 gauge in right antecubital area. Bleeding controlled, band aid aa5 applied, catheter tip intact. 07:34 Initial lab(s) drawn, by me, sent to lab. Inserted saline lock: 20 gauge in right aa5 antecubital area, using aseptic technique. Blood collected. 08:30 CT Abd/Pelvis - IV Contrast Only In Process Unspecified. EDMS 08:30 Patient has correct armband on for positive identification. Bed in low position. Call bp light in reach. Side rails up X2. 08:30 No provider procedures requiring assistance completed. bp 09:40 IV discontinued, intact, bleeding controlled, No redness/swelling at site. Pressure bp dressing applied. Administered Medications: 07:45 Drug: NS 0.9% 1000 ml Route: IV; Rate: 1000 ml; Site: right antecubital; bp 09:41 Follow up: IV Status: Completed infusion; IV Intake: 1000ml bp 07:45 Drug: Zofran (Ondansetron) 4 mg Route: IVP; Site: right antecubital; bp 09:41 Follow up: Response: No adverse reaction bp 07:45 Drug: Ketorolac 15 mg Route: IVP; Site: right antecubital; bp 09:41 Follow up: Response: Pain is decreased bp Medication: 08:30 VIS not applicable for this client. bp Intake: 09:41 IV: 1000ml; Total: 1000ml. bp Outcome: 09:17 Discharge ordered by . kb 09:40 Discharged to home ambulatory. bp 09:40 Condition: stable 09:40 Discharge instructions given to patient, Instructed on discharge instructions, follow up and referral plans. medication usage, Demonstrated understanding of instructions, follow-up care, medications, Prescriptions given X 1. 09:42 Patient left the ED. bp Signatures: Dispatcher [employer] EDMS Veronique Wiley, SPONSORSHIP MANAGER-C SPONSORSHIP MANAGER-Claudine To, RN RN aa5 Marcia Garcia am2 Ky Fuller, RN RN bp Corrections: (The following items were deleted from the chart) 07:21 07:18 BP 152 / 89; Pulse 129bpm; Resp 16bpm; Spontaneous; Pulse Ox 100% RA; Temp 98.6F aa5 Temporal; aa5 08:55 07:20 Pain: bp bp
[2022-08-28 10:03] VITALS: TEMP 98.6; O2SAT 100
[2022-08-28 10:05] VITALS: BP 118/68
== END 2022-08-28 09:42 | disposition home or self-care (01) ==
LOC: ER 07:09
DX: N83.299 Other ovarian cyst, unspecified side (principal)
CPT/HCPCS: 96361; 85025; 36415; 81025; 81003; 83690; 80053; 74177; 96375; 96374; 99284; Q9967; J7030; J2405

== ENCOUNTER 2023-06-25 07:28 | Emergency (ER) | payer BC ==
--- OUTSIDE RECORDS SUMMARY | 2023-06-25 07:31 | XMS REPORT | Clinical Summary ---
:1995 Author Organization [facility] MD [facility] Address [address] [place] [address] Care Team Providers Name Role Phone Benjamín Zhang MD Primary Care Provider Freddie Topete MD Unavailable Handy Moreno MD Unavailable Davin Pendleton APRN Unavailable Allergies No known active allergies Medications Medication Sig Dispensed Refills Start Date End Date Status buPROPion (WELLBUTRIN) Take 100 mg by 0 12/04/2021 Active 100 mg tablet mouth daily. vortioxetine Take 1 tablet (5 0 Active (Trintellix) 5 mg mg) by mouth tabletIndications: daily. 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 [facility] [place] [address] [place], [place] [id number] 04/23/2023 8:45 Follow-Up Melanoma and Skin Benjamín Zhang Mel anoma in situ of [facility] - Surgical MD lip Oncology [address] [facility] [address] [place] [address] 04/23/2023 Travel after 06/25/2022 Surgical History Surgery Date Site/Laterality Comments HI EXCISION MALIGNANT LESION 04/21/2018 Right Pro cedure: EXCISION OF F/E/E/N/L 0.5 CM/< MALIGNANT LES ION OF LIP(S) - wide excision ri ght upper lip; Surgeon: Wa neto Zhang MD; Location: [place] IN OR; Service: SURG ON C - MELANOMA HI ADJT TIS TRNSFR/REARRGMT 04/23/2018 Right Proc edure: REARRANGEMENT OF E/N/E/L DFCT 10 SQ CM/< ADJACENT TISSUE FOR REPAIR OF DEFECT OF LIP(S) Rylie Murphy andradha vs facial advanceme nt; Surgeon: Kallie weathers II, MD; Location: [facility]; Service: [facility] - PLASTIC [facility] HI INJECTION INTRALESIONAL UP 02/25/2019 Right Pr ocedure: INTRALESIONAL TO & INCLUD 7 LESIONS INJECTION to right lip lesion- Kenalog 40 and lidocaine 1:100; Surgeon: Kallie weathers II, MD; Location: [facility]; Service: [facility] - [facility] Medical devices from this surgery are in t he Medical Devices section. HI INJECTION INTRALESIONAL UP 03/25/2019 Face/Right Pr ocedure: INTRALESIONAL TO & INCLUD 7 LESIONS INJECTION of kenalog to right cheek.; Surgeon: Kallie Izquierdo II, MD; Location: [facility]; Service : [facility] - PLASTIC SURGERY HI ADJT TIS TRNS/REARGMT 05/20/2019 Right Procedu re: SUBTOTAL EXCISION F/C/C/M/N/A/G/H/F 10SQCM/< OF SC AR AND REARRANGEMENT OF ADJACENT TISSUE FOR REPAIR OF DEFECT OF CHEEK ; Surgeon: Kallie weathers II, MD; Location: [facility]; Service: PLS - PLASTIC [place] [facility] HI ADJT TIS TRNS/REARGMT 06/03/2019 Face/Right Procedu re: REARRANGEMENT OF F/C/C/M/N/A/G/H/F 10SQCM/< ADJAC ENT TISSUE FOR REPAIR OF DEFECT OF CHEEK( S); re-advancement o f V-Y flap; Surgeon: Kallie Izquierdo II, MD; Location : [facility] OR; Service: [facility] - P LASTIC SURGERY HI REPAIR COMPLEX 06/03/2019 Face/Right Procedure: COM PLEX REPAIR OF F/C/C/M/N/AX/G/H/F 1.1-2.5 CM [place](S); revision of scar; Surgeon: Kallie Izquierdo II, MD; Location : MAIN OR; Service: PLS - P LASTIC SURGERY HI EXC B9 LESION MRGN XCP SK 01/28/2021 Face/Right Pro cedure: EXCISION OF BENIGN TG F/E/E/N/L/M 0.5CM/< LESION OF FACE/EAR/EYELID/ NOSE/LIP/MUCO US MEMB, INCL MA RGINS (EXCEPT SKIN TAG); Surge on: Kallie Izquierdo II, MD; Location: MAIN OR; Service : [facility] - PLASTIC SURGERY HI REPAIR COMPLEX 03/01/2021 Face/Right Procedure: COM PLEX REPAIR OF F/C/C/M/N/AX/G/H/F 1.1-2.5 CM [place](S); Surgeon: Kallie Izquierdo II, MD; Location: [facility] [...] = 0.6 oz pure alcoho l) Sex and Gender Information Value Date Recorded Sex Assigned at Female 11/30/2020 11:53 A M CDT Gender Identity Female 11/30/2020 11:53 AM CDT Sexual Orientation Lesbian 11/30/2020 11:53 AM CDT Job Start Date [...] Sign Reading Time Taken Comments Blood Pressure 115/82 04/23/2023 9:03 AM CDT Pulse 91 04/23/2023 9:03 AM CDT Temperature 37 C (98.6 F) 04/23/2023 9:03 AM CDT Respiratory Rate 18 04/23/2023 9:03 AM CDT Oxygen Saturation - - Inhaled Oxygen Concentration - - Weight - - Height - - Body Mass Index - - Plan of Treatment Health Maintenance Due Date Last Done Comments COVID-19 Vaccination (#1) 03/17/1995 Medical Devices Implanted Type Area Delicate Fabrics Presser Device Shelf Model / Identifier Expiration Date Ser ial / Lot Sheeting Silicone Reinf .040 - [id number] Skin/Tissu [employer] 01/25/2020 [id number]-[id number] / Implanted: Qty: 1 on 02/25/2019 by Kallie Izquierdo II, MD at [facility] e / [id number] Results Not on fileafter 06/25/2022 Insurance Payer Benefit Plan / Subscriber ID Effective Dates Phone Addre ss Type Group [employer] PPO POS [id number] 2023-Present [id number] [place] [address] Advance Directives Code Status Date Activated Date Inactivated Comments Full Code 03/01/2021 1:53 PM 03/01/2021 7:48 PM Code Status Date Activated Date Inactivated Comments Full Code 01/28/2021 3:56 PM 01/28/2021 6:04 PM Full Code 06/03/2019 8:44 AM 06/03/2019 2:27 PM Full Code 05/20/2019 11:34 AM 05/20/2019 3:17 PM Full Code 03/25/2019 10:23 AM 03/25/2019 3:20 PM Care Teams Through Freight Engineer Relationship Specialty Start Date End Date Benjamín Zhang MD PCP - General Melanoma Surgery 02/04/[address] [place] [phone] Freddie Topete MD Consulting Physician Radiation Oncology 12/11/[address] [place] [phone] Handy Moreno MD Consulting Physician Dermatology 10/25/[address] [place] [phone] Davin Pendleton APRN Nurse Practitioner Neurosurgery 12/26/[address] [place] [id number]
--- OUTSIDE RECORDS SUMMARY | 2023-06-25 07:32 | XMS REPORT | Continuity of Care Document ---
:1995 Author Organization [facility] t Address [address] [place] [address] Care Team Providers Name Role Phone [phone] Primary Care Physician Unavailable [email or web address] Attending Clinician Unavailable Handy Estrada MD Attending Clinician HANDY ESTRADA Attending Clinician Unavailable Abdullahi Lind MD, I Attending Clinician ABDULLAHI LIND I Attending Clinician Unavailable CRISTIN TAYLOR Attending Clinician Unavailable Cristin Hernandez Attending Clinician Akil Denis Attending Clinician DESMOND MATHEWS Attending Clinician Unavailable Doctor Unassigned, [place] Attending Clinician Unavailable RADHA FINK KJayneHJayne Attending Clinician Unavailable Radha Fink MDHJayne Attending Clinician Ashlie Vega DO Attending Clinician Hayley Garner NP Attending Clinician HAYLEY GARNER Attending Clinician Unavailable WEI COHEN Attending Clinician Unavailable OFFODILKevin MONSIVAIS ANANIKKI Best Attending Clinician Unavailable FAY WONG Attending Clinician Unavailable [email or web address] Admitting Clinician Unavailable ARELYGRACIA REARDON II Admitting Clinician Unavailable Payers Payer Name Policy Type Policy Number Effective Date Expiration Date Ryan hughes [employer] [place] [id number] 2021 00:00:00 AETNA O [id number] 2020 00:00:00 Problems Condition Condition Condition Status Onset Resolution Last Treating Co mments Source Name Details Category Date Date Treatment Clinician Date Melanoma Melanoma Disease Active Unive rs in situ of in situ of 7-10 it y of lip lip 00:00: [place] 00 MD [facility] spear [facility] No known No known Disease Unive rs active active ity of problems problems [facility] Nipple Nipple Disease Resolve 2023-04-23 2023-04-23 Univers discharge discharge d 5-12 00:00:00 10:58:25 ity of 00:00: [place] 00 MD [facility] spear [facility] Hypertroph Hypertroph Disease Resolve 2023-04-23 2023-04-23 Univers ic ic d 8-05 00:00:00 10:58:05 ity of surgical surgical 00:00: [place] scar scar 00 MD [facility] spear [facility] Malignant Malignant Disease Resolve 2023-04-23 2023-04-23 Univers melanoma melanoma d 8-13 00:00:00 10:57:39 it y of of lip of lip 00:00: [place] 00 MD [facility] spear [facility] Allergies, Adverse Reactions, Alerts Allergy Allergy Status Severity Reaction(s) Onset Inactive Treating Comm ents Source Name Type Date Date Clinician NO KNOWN Drug Active Univers ALLERGIE Class ity of S [facility] Family History Family Member Diagnosis Comments Start Date Stop Date Source Maternal grandfather -Unknown cancer University [facility] Maternal grandmother [facility] Social History Social Habit Start Date Stop Date Quantity Comments Source Sexual orientation [facility] Alcohol intake 2023-04-23 2023-04-23 Current drinker Unive rsity of 00:00:00 00:00:00 of alcohol Latosha Lugo son (finding) [facility] History of Social 2023-04-23 2023-04-23 Univers ity of function 00:00:00 00:00:00 [place] MD Lugo [facility] Exposure to 2021-10-29 2021-11-28 Not sure University SARS-CoV-2 (event) 00:00:00 14:00:00 [facility] Tobacco use and 2021-05-10 2021-05-10 Smokeless Universit y of exposure 00:00:00 00:00:00 tobacco non-user [facility] [place] Sex Assigned [birth year] Universit y of 00:00:00 00:00:00 [facility] Smoking Status Start Date Stop Date Source Never smoked tobacco [facility] Medications Ordered Filled Start Stop Current Ordering Indication Dosage Frequency Signature Comments Components Source Medication Medication Date Date Medication? Clinician (SIG) Name Name vortioxetin Yes major 5mg Take 1 Uni vers e 04-23 depressive tablet (5 ity of (Trintellix 09:12: disorder mg) by [place] ) 5 mg 53 mouth MD tablet daily. [facility] buPROPion Yes 100mg Take 100 Uni vers (WELLBUTRIN 4-20 mg by ity of ) 100 mg 00:00: mouth [place] tablet 00 daily. MD [facility] spear [facility] buPROPion Yes 100mg Take 100 Uni vers (WELLBUTRIN 4-20 mg by ity of ) 100 mg 00:00: mouth [place] tablet 00 daily. MD [facility] spear [facility] methylPREDN Yes [id number] Take by [facility] ISolone 4-14 mouth ity of (MEDROL, 00:00: SEE-INSTRU [place] as JULIANA,) 4 mg 00 CTIONS. Medica l tablets follow Branch package directions amoxicillin 202- No [id number] 1{tbl} Take 1 Univers -clavulanat 4-14 04-22 tablet by it y of e [id number] 00:00: 04:59 mouth 2 [place] mg per 00 :00 (two) Medical tablet times [place] daily for 7 days. FLUoxetine 2021- No TAKE 1 Univ ers (PROzac) 10 3-15 05-13 CAPSULE BY i ty of mg capsule 00:00: 00:00 MOUTH [place] 00 :00 EVERY DAY MD [facility] No known 0 No Univers medications 9-28 ity of 00:31: [address] No known 2020-0 No Univers medications 9- ity of 00:31: [address] No known 2020-0 No Univers medications 9- ity of 00:31: [address] No known 2020-0 No Univers medications 9-28 ity of 00:31: [address] No known 2020-0 No Univers medications 9- ity of 00:31: [address] No known 2020-0 No Univers medications 9-28 ity of 00:31: [address] No known 2020-0 No Univers medications 9- ity of 00:31: [address] mupirocin 2021- No Hypertrophi Apply Univers (BACTROBAN) 716 04-13 c surgical topically ity of 2% ointment 00:00: 00:00 scar to [place] 00 :00 affected MD brcieño(s) [facility] Vital Signs Vital Name Observation Time Observation Value Comments Source Systolic blood 2021-11-28 19:08:00 128 mm[Hg] Univer sity of pressure [facility] Diastolic blood 2021-11-28 19:08:00 83 mm[Hg] Unive rsity of [facility] Heart rate 2021-11-28 19:06:00 96 /min [facility] Body temperature 2021-11-28 19:06:00 36.83 Catarina [facility] Res[facility] rate 2021-11-28 19:06:00 18 /min [facility] Body height 2021-11-28 19:06:00 154.9 cm [facility] Body weight 2021-11-28 19:06:00 66.044 [facility] BMI 2021-11-28 19:06:00 27.51 kg/m2 [facility] Oxygen saturation in 2021-11-28 19:06:00 99 /min [facility] Arterial blood by [facility] Pulse oximetry Branch Systolic blood 2021-05-30 13:05:00 110 mm[Hg] Univer sity of pressure [facility] Diastolic blood 2021-05-30 13:05:00 71 mm[Hg] Unive rsity of pressure [facility] Heart rate 2021-05-30 13:05:00 79 /min Universi ty of [facility] Body height 2021-05-30 13:05:00 152.4 cm Universi ty of [facility] Body weight 2021-05-30 13:05:00 68.04 kg Universi ty of [facility] BMI 2021-05-30 13:05:00 29.29 kg/m2 Universi ty of [facility] Systolic blood 2021-05-10 20:42:00 113 mm[Hg] Univer sity of pressure [facility] Diastolic blood 2021-05-10 20:42:00 74 mm[Hg] Unive rsity of pressure [facility] Heart rate 2021-05-10 20:42:00 98 /min Universi ty of [facility] Body weight 2021-05-10 20:42:00 66.225 kg Universi ty [facility] Oxygen saturation in 2021-05-10 20:42:00 99 /min University of Arterial blood by [facility] Pulse oximetry Branch Systolic blood 2023-04-23 14:03:00 115 mm[Hg] Univer sity of pressure [facility] Diastolic blood 2023-04-23 14:03:00 82 mm[Hg] Unive rsity of pressure [facility] Heart rate 2023-04-23 14:03:00 91 /min Universi ty of [facility] Body temperature 2023-04-23 14:03:00 37 Catarina Univ ersity of [facility] Respiratory rate 2023-04-23 14:03:00 18 /min Univ ersity of [facility] Systolic blood 2021-12-27 14:06:56 117 mm[Hg] Univer sity of pressure [facility] Diastolic blood 2021-12-27 14:06:56 80 mm[Hg] Unive rsity of pressure [facility] Heart rate 2021-12-27 14:06:56 101 /min Universi ty of [facility] Body temperature 2021-12-27 14:06:56 36.78 Catarina Univ ersity of [place] MD [facility] Respiratory rate 2021-12-27 14:06:56 16 /min [facility] MD [facility] Procedures Procedure Date / Time Performing Clinician Source Performed POCT MOLECULAR STREP 2021-11-28 19:11:00 Cristin Taylor ity [facility] REFUSAL OF NON-MEDICAL 2021-08-13 06:01:00 Doctor Unassigned, No [facility] SERVICES Name [facility] TRANSTHORACIC ECHO (TTE) 2021-05-30 13:39:15 Radha Fikn [facility] Plan of Care Planned Activity Planned Date Details Comments Source Future Scheduled 2023-04-27 COVID-19 Vaccination Uni versity of [place] Test 12:16:59 (#1) [code = ROBBINID-Antelmo PALUMBO [facility] (#1)] Center Future Scheduled 2022-07-02 COVID-19 Vaccination Uni versity of [place] Test 11:01:51 (#1) [code = COVID-19 [facility] Vaccination (#1)] Center Encounters Start End Encounter Admission Attending Care Care Encounter Source Date/Time Date/Time Type Type Clinicians Facility Department ID 2021-06-18 Emergency [facility] [id number] [facility] 01:47:46 ity [facility] 2023-06-14 2023-06-14 Outpatient GC_GCBZW_Ka PRIV PRIV [id number] [facility] 00:00:00 00:00:00 kelly_S [id number] Medic al 2023-04-23 2023-04-23 Follow-Up Handy Estrada 1.2.840.1 [id number] [facility] 09:00:00 09:09:30 03907.1.1 ity of 3.412.2.7 [place] .3.558636 .8 [facility] 2023-04-23 2023-04-23 Outpatient EL HANDY ESTRADA [facility] [id number] 08:49:06 09:09:30 Gilbert spear 2023-04-23 2023-04-23 Follow-Up Dia Lind2.840.1 [id number] Univers 08:45:00 09:00:00 Abdullahi Heredia 71301.1.1 it y of 3.412.2.7 [place] .3.911605 MD Godoy8 [facility] 2023-04-23 2023-04-23 Outpatient ASHLEY LIND [facility] [id number] 08:48:28 08:48:28 ABDULLAHI spear 2023-04-23 2023-04-23 Travel 1.2.840.1 [id number] [id number] Univers 00:00:00 00:00:00 94567.1.1 350.1.13.41 ity of 3.412.2.7 2.[place]7.3.698 [place] .3.149677 084.8 MD Godoy8 [facility] 2023-03-31 2023-03-31 Outpatient [facility] [id number] Ajit 10:09:16 10:09:16 0815 F Akil 2021-12-27 2021-12-27 Office Handy Estrada 1.2.840.1 [id number] Univers 08:45:00 09:35:19 Visit 37515.1.1 ity of 3.412.2.7 [place] .3.954937 MD Godoy8 [facility] 2021-12-27 2021-12-27 Travel 1.2.840.1 1.2.818.727 [id number] Univers 00:00:00 00:00:00 62359.1.1 350.1.13.41 ity of 3.412.2.7 2.[place].7.3.698 [place] .3.929661 084.8 MD Godoy8 [facility] 2021-11-28 2021-11-28 Outpatient R CLAUDIA [facility] [id number] Univers 14:20:00 14:44:53 CRISTIN ity of [facility] 2021-11-28 2021-11-28 Ree Taylor [facility] 1.2.840.114 [id number] Univers 14:20:00 14:40:00 Care [facility] 350.1.13.10 it y of [facility] 4.2.7.2.686 [place] as SYED?BLEA [phone] [address] MEDICAL OFFICE BUILDING 2021-11-12 2021-11-12 Office ASHLEY Lind, 1.2.840.1 [id number] Univers 12:00:00 12:40:03 Visit Abdullahi Heredia 86195.1.1 it y of 3.412.2.7 [place] .3.275196 .8 [facility] 2021-11-12 2021-11-12 Travel 1.2.840.1 1.2.047.711 [id number] Univers 00:00:00 00:00:00 93086.1.1 350.1.13.41 ity of 3.412.2.7 2.[place].7.3.698 [place] .3.395866 084.8 .8 [facility] 2021-08-28 2021-08-28 Letter EVELINE Denis 1.2.840.114 [id number] Univers 00:00:00 00:00:00 (Out) Akil HU 350.1.13.10 it y of HOSPITAL 4.2.7.2.686 [place] as [phone] [facility] 043 [place] 2021-08-23 2021-08-23 Outpatient [facility] [id number] Univers 13:30:00 13:30:00 DESMOND ity [facility] 2021-08-13 2021-08-13 Orders Doctor MOSQUERA 1.2.840.114 [id number] Univers 00:00:00 00:00:00 Only Unassigned, FRITZ 350.1.13.10 ity of [place] [facility] 4.2.7.2.686 [place] as [id number] [facility] 009 [place] 2021-06-20 2021-06-20 Outpatient HANDY COTO [facility] [id number] 14:40:59 14:59:50 [facility] spear 2021-06-07 2021-06-07 Outpatient [facility] [id number] Univers 14:30:00 14:30:00 SENDTHOM ity [facility] 2021-06-04 2021-06-04 Emmie Fink [facility] 1.2.395.394 [id number] Univers 00:00:00 00:00:00 Sendthom Roach 350.1.13.10 it[place].2.686 [place] [phone] [facility] 059 [facility] 2021-05-30 2021-05-30 [facility] 1.2.840.114 [id number] Univers 08:00:00 23:59:00 Encounter Radha Roach 350.1.13.10 [place].2.686 [place] [id number] [facility] 843 [facility] 2021-05-30 2021-05-30 Outpatient R [facility] [id number] Univers 08:00:00 08:00:00 SENDIL ity of [facility] 2021-05-29 2021-05-29 Patient Doctor [facility] 1.2.840.114 [id number] Univers 00:00:00 00:00:00 Secure Msg Unassigned, MAXI 350.1.13.10 ity of [place] [facility] 4.2.7.2.686 [place] PROFESS[place] [phone] [place] [id number] [facility] 2021-05-28 2021-05-28 [facility] 1.2.388.879 [id number] Univers 00:00:00 00:00:00 Radha Roach 350.1.13.10 it[place] 4[place]2.7.2.686 [place] [phone] Vt dicpa nal 9 [facility] 2021-05-14 2021-05-14 Emergency [facility] 1.2.840.114 [id number] Univers 00:27:00 03:27:00 Ashlie Roach 350.1.13.10 it[place].7.2.686 [place] [id number] [facility] 084 [place] 2021-05-10 2021-05-10 [facility] 1.2.840.114 [id number] Univers 16:26:19 23:59:00 Encounter Sendil Helena Roach 350.1.13.10 ity [place] 4.2.7.2.686 [place] Profess[place] [phone] Vt dical nal 846 [facility] 2021-05-10 2021-05-10 Office Danae [facility] 1.2.840.114 [id number] Univers 15:31:58 16:40:13 Visit Sendil Helena Roach 350.1.13.10 ity of [place] 4.2.7.2.686 [place] Profess[place] [phone] Vt dical nal 059 [facility] 2021-05-10 2021-05-10 [facility] [id number] Univers 15:30:00 15:30:00 SENDIL itcruz of [facility] 2021-05-06 2021-05-06 Emergency [facility] 1.2.761.307 [id number] Univers 18:43:00 21:23:00 Hayley Roach 350.1.13.10 ity [place] 4.2.7.2.686 [place] [id number] [facility] 084 [place] 2021-05-06 2021-05-06 Emergency X [facility] ERT [id number] Univers 18:30:00 18:30:00 HAYLEY corbin of [facility] 2021-03-08 2021-03-08 Outpatient ASHLEY COHEN MDA MDA [id number] 07:25:23 08:15:08 WEI spear 2021-03-01 2021-03-01 Outpatient ASHLEY OFFALEXYS [place] [employer] [id number] 08:29:00 17:05:00 II, ANAEZE Surg And erso n 2021-03-01 2021-03-01 Outpatient ASHLEY WONG MDA MDA [id number] 08:04:49 08:28:00 FAY spear 2021-02-28 2021-02-28 Outpatient ASHLEY COHEN MDA MDA [id number] 08:19:08 08:19:08 WEI spear 2021-02-28 2021-02-28 Outpatient ASHLEY COHEN MDA MDA [id number] 07:16:09 08:02:19 WEI verdin n 2020-11-19 2020-11-19 Outpatient ASHLEY BELLA MDA MDA [id number] 07:59:45 11:23:07 GRACIA MONSIVAIS And nicko n 2020-10-25 2020-10-25 Outpatient ASHLEY ESTRADAHANDY [facility] MDA [id number] 11:16:47 14:28:31 Gilbert spear 2020-10-25 2020-10-25 Outpatient ASHLEY LIND MDA MDA [id number] 11:15:08 12:13:33 ABDULLAHI spear 2020-04-03 2020-04-03 Outpatient ASHLEY LIND MDA MDA [id number] 12:36:18 14:58:07 ABDULLAHI spear Results Test Description Test Time Test Comments Results Result Comments Source POCT MOLECULAR STREP 2021-11-28 19:18:47 Test Item Value Reference Range Interpretation Comme nts POCT Molecular Strep (test code = 16239-0) Negative Negative Lab Interpretation (test code = 00022-2) Normal [facility]
[2023-06-25] MEDS ORDERED: ACETAMINOPHEN 500 MG TAB ONE (08:02)
[2023-06-25] MEDS ORDERED: ONDANSETRON 4 MG (ODT) TAB ONE (08:02)
[2023-06-25 08:19] LABS: SARS-CoV-2 Antigen Rapid Res Negative (Negative)
--- NOTE | 2023-06-25 09:07 | RAD REPORT ---
EXAM DESCRIPTION: [place] Single View06/25/2023 8:58 am CLINICAL HISTORY: cough COMPARISON: 2020 FINDINGS: The lungs appear clear of acute infiltrate. The heart is normal size IMPRESSION: No acute abnormalities displayed
--- NOTE | 2023-06-25 09:09 | EDPHYS ---
Physician Documentation [facility] Name: Alison Sheppard Age: 27 yrs Sex: Female : 1995 Arrival Date: 06/25/2023 Time: 07:28 Bed DX4 Private MD: ED Physician Liya Wilson HPI: 06/25 08:16 This 27 yrs old Female presents to ER via Ambulatory with complaints of Flu Symptoms. sp3 08:16 27-year-old female with a history of melanoma prior, depression now presents to the ED sp3 with chief complaint cough, congestion, body aches with positive sick contact with patient's spouse over the last several days. Patient denies any chest pain, abdominal pain but does endorse vomiting. No blood or mucus in the emesis. ROS otherwise negative.. 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 Last tetanus immunization: > 10 years ago. - Social history:: Smoking status: Patient denies any tobacco usage or history of. ROS: 08:17 Eyes: Negative for injury, pain, redness, and discharge, ENT: Negative for injury, sp3 pain, and discharge, Neck: Negative for injury, pain, and swelling, Cardiovascular: Negative for chest pain, palpitations, and edema, Back: Negative for injury and pain, MS/Extremity: Negative for injury and deformity, Skin: Negative for injury, rash, and discoloration, Neuro: Negative for headache, weakness, numbness, tingling, and seizure, Psych: Negative for depression, anxiety, suicide ideation, homicidal ideation, and hallucinations, Allergy/Immunology: Negative for hives, rash, and allergies, Endocrine: Negative for neck swelling, polydipsia, polyuria, polyphagia, and marked weight changes, Hematologic/Lymphatic: Negative for swollen nodes, abnormal bleeding, and unusual bruising, 08:17 All other systems are negative, Exam: 08:17 Head/Face: Normocephalic, atraumatic. Eyes: Pupils equal round and reactive to light, sp3 extra-ocular motions intact. Lids and lashes normal. Conjunctiva and sclera are non-icteric and not injected. Cornea within normal limits. Periorbital areas with no swelling, redness, or edema. Neck: Trachea midline, no thyromegaly or masses palpated, and no cervical lymphadenopathy. Supple, full range of motion without nuchal rigidity, or vertebral point tenderness. No Meningismus. Chest/axilla: Normal chest wall appearance and motion. Nontender with no deformity. No lesions are appreciated. Respiratory: Lungs have equal breath sounds bilaterally, clear to auscultation and percussion. No rales, rhonchi or wheezes noted. No increased work of breathing, no retractions or nasal flaring. Abdomen/GI: Soft, non-tender, with normal bowel sounds. No distension or tympany. No guarding or rebound. No evidence of tenderness throughout. Skin: Warm, dry with normal turgor. Normal color with no rashes, no lesions, and no evidence of cellulitis. MS/ Extremity: Pulses equal, no cyanosis. Neurovascular intact. Full, normal range of motion. Neuro: Awake and alert, GCS 15, oriented to person, place, time, and situation. Cranial nerves II-XII grossly intact. Motor strength 5/5 in all extremities. Sensory grossly intact. Cerebellar exam normal. Normal gait. Psych: Awake, alert, with orientation to person, place and time. Behavior, mood, and affect are within normal limits. 08:17 Cardiovascular: Rate: tachycardic, Vital Signs: 07:40 BP 115 / 69; Pulse 134; Resp 20; Temp 100.2; Pulse Ox 96% ; Weight 72.57 kg; Height 5 as6 ft. 2 in. ; Pain 10/10; 07:40 Body Mass Index 29.26 (72.57 kg, 157.48 cm) as6 07:40 Pain Scale: Adult as6 MDM: 07:42 Patient medically screened. sp3 08:18 Data reviewed: vital signs, nurses notes, lab test result(s), radiologic studies. ED sp3 course: 27-year-old female with positive flu exposure now with flu symptoms, fever, tachycardia. Tachycardia is out of proportion to fever so patient may have mild dehydration. AMALIA Arnold has been given and patient states she feels better and is now tolerating p.o. liquids. We will continue to monitor heart rate and p.o. intake while we await remainder of her work-up. Swabs and chest x-ray are pending. We will hold on intravenous fluids unless needed. Patient likely has viral influenza given her sick contact however we will also assess for COVID, pneumonia, or other pulmonary pathology. Probable discharge pending work-up and patient course.. 09:08 ED course: Chest x-ray is negative and swabs were also negative. However given sp3 patient's sick contact, we will go ahead and treat with Tamiflu.. 06/25 07:41 Order name: Strep kj1 06/25 07:41 Order name: SARS RAPID; Complete Time: 09:08 kj1 06/25 07:41 Order name: Flu; Complete Time: 09:08 kj1 06/25 08:22 Order name: Throat Culture EDMS 06/25 07:41 Order name: CXR XRAY; Complete Time: 09:08 sp3 06/25 07:54 Order name: PO challenge: After Zofran; PO hydration; Complete Time: 09:15 sp3 Administered Medications: 07:50 Drug: Acetaminophen PO 1000 mg PO once Route: PO; as6 07:50 Drug: Ondansetron Oral Disintegrating Tablet Oral Disintegrating Tablet 4 mg PO once as6 Route: PO; Disposition Summary: 06/25/23 09:09 Discharge Ordered Notes: Location: Home sp3 Condition: Stable sp3 Diagnosis - Influenza, viral syndrome, upper respiratory infection sp3 Followup: sp3 - With: Private Physician - When: Upon discharge from the Emergency Department - Reason: Continuance of care Discharge Instructions: - Discharge Summary Sheet sp3 - Influenza, Adult sp3 Forms: - Medication Reconciliation Form sp3 - Thank You Letter sp3 - Antibiotic Education sp3 - Prescription Opioid Use sp3 - Patient Portal Instructions sp3 - Leadership Thank You Letter sp3 - Work release form kb3 Prescriptions: - Tamiflu 75 mg Oral capsule - take 1 tablet ORAL route every 12 hours for 5 days; 10 tablet; Refills: 0, sp3 Product Selection Permitted - ondansetron 8 mg Oral Tablet,disintegrating - take 1 tablet ORAL route every 12 hours; 10 tablet; Refills: 0, Product sp3 Selection Permitted Signatures: Dispatcher [employer] Liya Lane MD MD sp3 Davonte Kennedy RN RN as6 Corrections: (The following items were deleted from the chart) 07:43 07:42 Home Meds: None; as6 as6
--- NOTE | 2023-06-25 09:09 | ER ---
Nurse's Notes [facility] Name: Alison Sheppard Age: 27 yrs Sex: Female : 1995 Arrival Date: 06/25/2023 Time: 07:28 Bed DX4 Private MD: Diagnosis: Influenza, viral syndrome, upper respiratory infection Presentation: 06/25 07:40 Chief complaint: Patient states: Pt reports vomiting, fever, cough/congestion, body as6 aches, sore throat and bilateral ear pressure since 0230. Pt reports spouse had flu B. Coronavirus screen: Vaccine status: Patient reports being unvaccinated. Client denies travel out of the [place] in the last 14 days. Ebola Screen: Patient negative for fever greater than or equal to 101.5 degrees Fahrenheit, and additional compatible Ebola Virus Disease symptoms Patient denies exposure to infectious person. Patient denies travel to an Ebola-affected area in the 21 days before illness onset. Initial Sepsis Screen: Does the patient meet any 2 criteria? No. Patient's initial sepsis screen is negative. Does the patient have a suspected source of infection? No. Patient's initial sepsis screen is negative. Initial Sepsis Screen: Does the patient have a suspected source of infection? Yes: Other: flu. Risk Assessment: Do you want to hurt yourself or someone else? Patient reports no desire to harm self or others. Onset of symptoms was June 25, 2023 at 02:30. 07:40 Method Of Arrival: Ambulatory as6 07:40 Acuity: ALESSANDRA 3 as6 Triage Assessment: 07:42 General: Appears in no apparent distress. ill, Behavior is calm, cooperative. Pain: as6 Complains of pain in head, chest, abdomen, right arm, left arm, right leg and left leg Pain does not radiate. Pain currently is 10 out of 10 on a pain scale. Quality of pain is described as aching. 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 Last tetanus immunization: > 10 years ago. - Social history:: Smoking status: Patient denies any tobacco usage or history of. Vital Signs: 07:40 BP 115 / 69; Pulse 134; Resp 20; Temp 100.2; Pulse Ox 96% ; Weight 72.57 kg; Height 5 as6 ft. 2 in. ; Pain 10/10; 07:40 Body Mass Index 29.26 (72.57 kg, 157.48 cm) as6 07:40 Pain Scale: Adult as6 ED Course: 07:30 Patient arrived in ED. rg4 07:37 Liya Wilson MD is Attending Physician. sp3 07:42 Triage completed. as6 07:42 Arm band placed on right wrist. Patient placed in waiting room. as6 07:46 Strep Sent. iw 07:46 Flu Sent. iw 09:00 CXR XRAY In Process Unspecified. EDMS Administered Medications: 07:50 Drug: Acetaminophen PO 1000 mg PO once Route: PO; as6 07:50 Drug: Ondansetron Oral Disintegrating Tablet Oral Disintegrating Tablet 4 mg PO once as6 Route: PO; Outcome: 09:09 Discharge ordered by . sp3 09:22 Patient left the ED. kb3 Signatures: Dispatcher [employer] EDMS Becki Vega, GLADYS GRAHAM iw Ashanti Sutton rg4 Liya Wilson MD MD sp3 Davonte Kennedy RN RN as6 Tiffanie Leiva RN RN kb3 Corrections: (The following items were deleted from the chart) 07:43 07:42 Home Meds: None; as6 as6
[2023-06-25 09:28] VITALS: BP 115/69; TEMP 100.2; O2SAT 96
== END 2023-06-25 09:22 | disposition home or self-care (01) ==
LOC: ER 07:28
DX: J11.1 Influenza due to unidentified influenza virus with other respiratory manifestations (principal); B34.9 Viral infection, unspecified; Z11.52 Encounter for screening for COVID-19; F32.A Depression, unspecified
CPT/HCPCS: 87070; 36415; 87081; 87804 ×2; 71045; 99283; 87811; Q0162

== ENCOUNTER 2024-10-07 14:16 | Emergency (ER) | payer SELFPAY ==
--- OUTSIDE RECORDS SUMMARY | 2024-10-07 14:21 | XMS REPORT | Clinical Summary ---
Author Name Unknown Organization [facility] Address [address] [place] [address] Care Team Providers Care Shipping Room Helper Name Role Phone Benjamín Zhang MD Primary Care Provider Freddie Topete MD Unavailable [phone] Handy Moreno MD Unavailable Davin Pendleton APRN Unavailable Allergies No known active allergies Medications * This document contains information received from the source organization and may not represent a complete record from that organization. buPROPion (WELLBUTRIN) 100 mg tablet Take 100 mg by mouth daily. 12/04/2021 Active vortioxetine (Trintellix) 5 mg tabletIndication s:major depressive disorder Take 1 tablet (5 mg) by mouth daily. Active sertraline (ZOLOFT) 100 mg tablet Take 1 tablet (100 mg) by mouth every morning. 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 Encounters Date Type Department Care Team Description 02/12/2024 8:30 AM CDT [facility] [address] [facility] [address] Bldg, 9th [place] [address] Handy Moreno MD Skin cancer screening (Primary Dx); Melanoma in situ of lip 02/12/2024 Travel 12/04/2023 Orders Only [facility] [address] [facility] [address]g, 9th [place] [address] Eileen Mohan, GLADYS Melanoma in situ of lip (Primary Dx) after 10/08/2023 Surgical History Surgery Date Site/Laterality Comments OR EXCISION MALIGNANT LESION F/E/E/N/L 0.5 CM/< 04/21/2018 Right Procedure: EXCISION OF MALIGNANT LESION OF LIP(S) - wide excision right upper lip; Surgeon: Benjamín Zhang MD; Location: MAIN OR; Service: SURG ONC - MELANOMA OR ADJT TIS TRNSFR/REARRGMT E/N/E/L DFCT 10 SQ CM/< 04/23/2018 Right Procedure: REARRANGEMENT OF ADJACENT TISSUE FOR REPAIR OF DEFECT OF LIP(S) Elaine Murphy vs facial advancement; Surgeon: Kallie Izquierdo II, MD; Location: MAIN OR; Service: PLS - PLASTIC SURGERY OR INJECTION INTRALESIONAL U P TO & INCLUD 7 LESIONS 02/25/2019 Right Procedure: INTRALESIONAL INJECTION to right lip lesion- Kenalog 40 and lidocaine 1:100; Surgeon: Kallie Izquierdo II, MD; Location: [facility]; Service: PLS - PLASTIC SURGERY Medical devices from this surgery are in the Medical Devices section. OR INJECTION INTRALESIONAL U P TO & INCLUD 7 LESIONS 03/25/2019 Face/Right Procedure: INTRALESIONAL INJECTION of kenalog to right cheek.; Surgeon: Kallie Izquierdo II, MD; Location: [facility]; Service: PLS - PLASTIC SURGERY OR ADJT TIS TRNS/REARGMT F/C/C/M/N/A/G/H/F 10SQCM/< 05/20/2019 Right Procedure: SUBTOTAL EXCISION OF SCAR AND REARRANGEMENT OF ADJACENT TISSUE FOR REPAIR OF DEFECT OF CHEEK ; Surgeon: Kallie Izquierdo II, MD; Location: [facility]; Service: PLS - PLASTIC SURGERY OR ADJT TIS TRNS/REARGMT F/C/C/M/N/A/G/H/F 10SQCM/< 06/03/2019 Face/Right Procedure: REARRANGEMENT OF ADJACENT TISSUE FOR REPAIR OF DEFECT OF CHEEK(S); re-advancement of V-Y flap; Surgeon: Kallie Izquierdo II, MD; Location: MAIN OR; Service: PLS - PLASTIC SURGERY OR REPAIR COMPLEX F/C/C/M/N/AX/G/H/F 1.1-2.5 CM 06/03/2019 Face/Right Procedure: COMPLEX REPAIR OF CHEEK(S); revision of scar; Surgeon: Kallie Izquierdo II, MD; Location: MAIN OR; Service: PLS - PLASTIC SURGERY OR EXC B9 LESION MRGN XCP SK TG F/E/E/N/L/M 0.5CM/< 01/28/2021 Face/Right Procedure: EXCISION OF BENIGN LESION OF FACE/EAR/EYELID/NOSE/LIP/MUCO US MEMB, INCL MARGINS (EXCEPT SKIN TAG); Surgeon: Kallie Izquierdo II, MD; Location: MAIN OR; Service: PLS - PLASTIC SURGERY OR REPAIR COMPLEX F/C/C/M/N/AX/G/H/F 1.1-2.5 CM 03/01/2021 Face/Right Procedure: COMPLEX REPAIR OF CHEEK(S); Surgeon: Kallie Izquierdo II, MD; Location: [facility]; Service: PLS - PLASTIC SURGERY Medical History Medical [...] Smoking Tobacco: Never Smokeless Tobacco: Never Tobacco Cessation:Ready to Q uit: No Alcohol Use Standard Drinks/Week Comments Yes 3 (1 standard drink = 0.6 oz pur e alcohol) Comments No Sex and Gender Information Value Date Recorded Sex Assigned at Female 11/30/2020 11:53 AM CDT Legal Sex Female 9:51 AM CDT Gender Identity Female 11/30/2020 11:53 AM CDT Sexual Orientation Lesbian 11/30/2020 11 :53 AM CDT Obstetrics History Para Term AB IAB SAB Ectopic Multiple Livin g Live Births 0 0 0 0 0 0 0 0 0 0 0 Comments Age of menarche: 13 Use of oral contraceptives or hormone replacement therapy: None Patient denies any history of abnormal Pap smears and reports that her last Pap smear was in 2017 Patient denies any history of breast biopsies. Last Filed Vital Signs Vital Sign Reading Time Taken Comments Blood Pressure 104/70 02/12/2024 8:53 AM CDT Pulse 109 02/12/2024 8:53 AM CDT Temperature - - Respiratory Rate 17 02/12/2024 8:53 AM CDT Oxygen Saturation 98% 02/12/2024 8:53 AM CDT Inhaled Oxygen Concentration - - Weight 75 kg (165 lb 5.5 oz) 02/12/2024 8:53 AM CDT Height - - Body Mass Index 30.43 12/26/2020 7:54 AM CDT Plan of Treatment Upcoming Encounters Date Type Department Care Team (Late st Contact Info) Description 02/09/2025 12:45 PM CDT [facility] [address] [place] [address], 9th Floor Ele[address] [place], [place] [id number] Handy Moreno MD [address] [place] [id number] [email or web address] Health Maintenance Due Date Last Done Comments COVID-19 Vaccine ( - 2023-2 5 season) 2024 Influenza Vaccine (#1) 2024 Pneumococcal Vaccine Aged Out No long er eligible based on patient's age to complete this topic Medical Devices Implanted Type Area Coding File Clerk Device Identifier Shelf Expiration Date Model / Serial / Lot Sheeting Silicone Reinf .040 - [id number] Implanted:Qty: 1 on 02/25/2019 by Kallie Izquierdo II, MD at [facility] Skin/Tissu e [employer] 01/25/2020 S-701-40 / / [id number] Insurance [facility] PPO POS BCBS [place] PPO POS Advance Directives * Full Code (Latest Code Status on File) Date Activated Date Inactivated Comments 03/01/2021 1:53 PM 03/01/2021 7:48 PM * Full Code Date Activated Date Inactivated Comments 01/28/2021 3:56 PM 01/28/2021 6:04 PM * Full Code Date Activated Date Inactivated Comments 06/03/2019 8:44 AM 06/03/2019 2:27 PM * Full Code Date Activated Date Inactivated Comments 05/20/2019 11:34 AM 05/20/2019 3:17 PM * Full Code Date Activated Date Inactivated Comments 03/25/2019 10:23 AM 03/25/2019 3:20 PM Care Teams Shipping Room Helper Relationship Specialty Start Date End Date Benjamín Zhang MD [address] [place] [address] [email or web address] PCP - General Melanoma Surgery 02/04/18 Freddie Topete MD [address] [place] [id number] [email or web address] Consulting Physician Radiation Oncology 12/11/20 Handy Moreno MD [address] [place] [address] [phone] [email or web address] Consulting Physician Dermatology 10/25/20 Davin Pendleton APRN [address] [place] [address] [phone] [email or web address] Nurse Practitioner Neurosurgery 12/26/20
--- NOTE | 2024-10-07 14:39 | EDPHYS ---
Physician Documentation [facility] Name: lAison Sheppard Age: 29 yrs Sex: Female : 1995 Arrival Date: 10/07/2024 Time: 14:16 Bed IW6 Private MD: ED Physician Garrett Owen HPI: 10/07 14:32 This 29 yrs old Female presents to ER via Ambulatory with complaints of Breast Problem cp - swelling/pain. 14:33 left breast pain. Description: swollen, warm, painful. Onset: The symptoms/episode cp began/occurred this morning. Associated signs and symptoms: Pertinent positives: chills, Pertinent negatives: discharge, fever. 14:33 Patient reports she is currently breast feeding child. cp MATERIAL HAULER: 14:28 LMP N/A - Recent , Not ap3 Historical: - Allergies: 14:26 No Known Allergies; ap3 - Home Meds: 14:26 None [Active]; ap3 - PMHx: 14:26 Anxiety; depressive disorder; melanoma; Tachycardia; ap3 - PSHx: 14:26 Facial SX; ap3 - Immunization history:: Adult Immunizations up to date. - Infectious Disease History:: Denies. - Social history:: Smoking status: Patient denies any tobacco usage or history of. ROS: 14:34 Skin: Positive for erythema, swelling, of the left breast, pain, cp Exam: 14:35 Head/Face: Normocephalic, atraumatic. cp 14:35 Constitutional: The patient appears in no acute distress, alert, awake, non-diaphoretic, non-toxic, well developed, well nourished, 14:35 Chest/axilla: Breasts: swelling, that is mild of the left breast, tenderness, that is cp moderate, of the left breast, mild general erythema, 14:35 Cardiovascular: Rate: tachycardic, 14:35 Respiratory: the patient does not display signs of respiratory distress, Respirations: normal, no use of accessory muscles, no retractions, labored breathing, is not present, Breath sounds: are clear throughout, no decreased breath sounds, no stridor, no wheezing, 14:35 Abdomen/GI: Inspection: abdomen appears normal, 14:35 Neuro: Orientation: to person, place \T\ time. Mentation: is normal, Vital Signs: 14:24 BP 128 / 92; Pulse 119; Resp 18; Temp 98.4; Pulse Ox 97% ; Weight 68.04 kg; Height 5 ap3 ft. 0 in. ; Pain 10/10; 14:24 Body Mass Index 29.29 (68.04 kg, 152.4 cm) ap3 14:24 Pain Scale: Adult ap3 MDM: 14:38 Medical Screening Exam initiated cp 14:38 Differential diagnosis: abscess, cellulitis, sepsis. cp 14:38 Data reviewed: vital signs, nurses notes, and as a result, I will discharge patient. cp Counseling: I had a detailed discussion with the patient and/or guardian regarding the historical points, exam findings, and any diagnostic results supporting the discharge/admit diagnosis, to return to the emergency department if symptoms worsen or persist or if there are any questions or concerns that arise at home. Administered Medications: No medications were administered Disposition: 10/08 01:38 Chart complete. cp 06:58 Co-signature as Attending Physician, Garrett Owen MD I agree with the assessment and lisandra plan of care. Disposition Summary: 10/07/24 14:38 Discharge Ordered Notes: Location: Home cp Problem: new cp Symptoms: are unchanged cp Condition: Stable cp Diagnosis - Nonpurulent mastitis associated with cp Followup: cp - With: Private Physician - When: 2 - 3 days - Reason: Recheck today's complaints Discharge Instructions: - Discharge Summary Sheet cp - Mastitis cp - and Mastitis cp Forms: - Medication Reconciliation Form cp - Antibiotic Education cp - Prescription Opioid Use cp - Patient Portal Instructions cp - Leadership Thank You Letter cp Prescriptions: - Anaprox DS 550 mg Oral Tablet - take 1 tablet ORAL route every 12 hours As needed; 20 tablet; Refills: 0, cp Product Selection Permitted - Dicloxacillin 500 mg Oral Capsule - take 1 capsule ORAL route every 6 hours for 10 days; 40 capsule; Refills: 0, cp Product Selection Permitted Signatures: Garrett Owen MD MD cha Page, Corey, PA PA cp Prokisch, Amanda, RN RN ap3
--- NOTE | 2024-10-07 14:39 | ER ---
Nurse's Notes [facility] Name: Alison Sheppard Age: 29 yrs Sex: Female : 1995 Arrival Date: 10/07/2024 Time: 14:16 Bed IW6 Private MD: Diagnosis: Nonpurulent mastitis associated with Presentation: 10/07 14:24 Chief complaint: Patient states: she has been having left breast pain, with redness and ap3 swelling since this morning. patient states that she is currently breast feeding, and feeding baby isn't helping the pain. Coronavirus screen: At this time, the client does not indicate any symptoms associated with coronavirus-19. Ebola Screen: No symptoms or risks identified at this time. Initial Sepsis Screen: Does the patient meet any 2 criteria? HR > 90 bpm. Does the patient have a suspected source of infection? No. Patient's initial sepsis screen is negative. Risk Assessment: Do you want to hurt yourself or someone else? Patient reports no desire to harm self or others. Onset of symptoms was October 07, 2024. 14:24 Method Of Arrival: Ambulatory ap3 14:24 Acuity: ALESSANDRA 3 ap3 Triage Assessment: 14:27 General: Appears uncomfortable, Behavior is calm, cooperative, appropriate for age. ap3 Pain: Complains of pain in left breast Pain currently is 10 out of 10 on a pain scale. Pain began gradually. Neuro: Level of Consciousness is awake, alert, obeys commands, Oriented to person, place, time, situation, Appropriate for age. Cardiovascular: Patient's skin is warm and dry. Respiratory: Airway is patent Respiratory effort is even, unlabored, Respiratory pattern is regular, symmetrical. 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 - Infectious Disease History:: Denies. - Social history:: Smoking status: Patient denies any tobacco usage or history of. Screenin:28 [facility] ED Fall Risk Assessment (Adult) History of falling in the last 3 months, ap3 including since admission No falls in past 3 months (0 pts) Confusion or Disorientation No (0 pts) Intoxicated or Sedated No (0 pts) Impaired Gait No (0 pts) Mobility Assist Device Used No (0 pt) Altered Elimination No (0 pt) Score/Fall Risk Level 0 - 2 = Low Risk Oriented to surroundings, Maintained a safe environment, Educated pt \T\ family on fall prevention, incl call for assistance when getting out of bed, Assessed \T\ reinforced patient's understanding of fall precautions, Hourly rounding (assess needs \T\ fall precautionary measures) done, Used ambulatory aids as needed (educated on \T\ assisted with). Abuse screen: Denies threats or abuse. Nutritional screening: No deficits noted. Tuberculosis screening: No symptoms or risk factors identified. Vital Signs: 14:24 BP 128 / 92; Pulse 119; Resp 18; Temp 98.4; Pulse Ox 97% ; Weight 68.04 kg; Height 5 ap3 ft. 0 in. ; Pain 10/10; 14:24 Body Mass Index 29.29 (68.04 kg, 152.4 cm) ap3 14:24 Pain Scale: Adult ap3 ED Course: 14:19 Patient arrived in ED. im 14:26 Triage completed. ap3 14:28 Garrett Webb PA is PHCP. cp 14:28 Garrett Owen MD is Attending Physician. cp 14:28 Arm band placed on right wrist. ap3 14:48 No provider procedures requiring assistance completed. Patient did not have IV access ap3 during this emergency room visit. 14:49 Patient has correct armband on for positive identification. Provided Education on: ap3 medication education. Administered Medications: No medications were administered Medication: 14:49 VIS not applicable for this client. ap3 Outcome: 14:38 Discharge ordered by . cp 14:48 Discharged to home ambulatory, ap3 14:48 Condition: good 14:48 Discharge instructions given to patient, Instructed on discharge instructions, follow up and referral plans. medication usage, Demonstrated understanding of instructions, follow-up care, medications, Prescriptions given X 2, 14:49 Patient left the ED. ap3 Signatures: Garrett Webb PA PA cp Prokisch, Amanda, RN RN ap3 Vera Gross
[2024-10-08 05:17] VITALS: BP 128/92; TEMP 98.4; O2SAT 97
== END 2024-10-07 14:49 | disposition home or self-care (01) ==
LOC: ER 14:16
DX: O91.23 Nonpurulent mastitis associated with lactation (principal)
CPT/HCPCS: 99283

== ENCOUNTER 2024-12-14 12:50 | Emergency (ER) | payer OTHER ==
--- OUTSIDE RECORDS SUMMARY | 2024-12-14 12:54 | XMS REPORT | Clinical Summary ---
Author Name Unknown Organization [facility] Address [address] [place] [address] Care Team Providers Care Furnace Room Supervisor Name Role Phone Benjamín Zhang MD Primary Care Provider [phone] Freddie Topete MD Unavailable [phone] Handy Moreno MD Unavailable Davin Pendleton APRN [...] Hospital Main Bldg, 9th [place] [address] Handy Moreno MD Skin cancer screening (Primary Dx); Melanoma in situ of lip 02/12/2024 Travel after 12/15/2023 Surgical History Surgery Date Site/Laterality Comments MO EXCISION MALIGNANT LESION F/E/E/N/L 0.5 CM/< 04/21/2018 Right Procedure: EXCISION OF MALIGNANT LESION OF LIP(S) - wide excision right upper lip; Surgeon: Benjamín Zhang MD; Location: MAIN OR; Service: SURG ONC - MELANOMA MO ADJT TIS TRNSFR/REARRGMT E/N/E/L DFCT 10 SQ CM/< 04/23/2018 Right Procedure: REARRANGEMENT OF ADJACENT TISSUE FOR REPAIR OF DEFECT OF LIP(S) Elaine Murphy vs facial advancement; Surgeon: Kallie Izquierdo II, MD; Location: MAIN OR; Service: PLS - PLASTIC SURGERY MO INJECTION INTRALESIONAL U P TO & INCLUD 7 LESIONS 02/25/2019 Right Procedure: INTRALESIONAL INJECTION to right lip lesion- Kenalog 40 and lidocaine 1:100; Surgeon: Kallie Izquierdo II, MD; Location: [facility]; Service: PLS - PLASTIC SURGERY Medical devices from this surgery are in the Medical Devices section. MO INJECTION INTRALESIONAL U P TO & INCLUD 7 LESIONS 03/25/2019 Face/Right Procedure: INTRALESIONAL INJECTION of kenalog to right cheek.; Surgeon: Kallie Izquierdo II, MD; Location: [facility]; Service: PLS - PLASTIC SURGERY MO ADJT TIS TRNS/REARGMT F/C/C/M/N/A/G/H/F 10SQCM/< 05/20/2019 Right Procedure: SUBTOTAL EXCISION OF SCAR AND REARRANGEMENT OF ADJACENT TISSUE FOR REPAIR OF DEFECT OF CHEEK ; Surgeon: Kallie Izquierdo II, MD; Location: [facility]; Service: PLS - PLASTIC SURGERY MO ADJT TIS TRNS/REARGMT F/C/C/M/N/A/G/H/F 10SQCM/< 06/03/2019 Face/Right Procedure: REARRANGEMENT OF ADJACENT TISSUE FOR REPAIR OF DEFECT OF CHEEK(S); re-advancement of V-Y flap; Surgeon: Kallie Izquierdo II, MD; Location: MAIN OR; Service: PLS - PLASTIC SURGERY MO REPAIR COMPLEX F/C/C/M/N/AX/G/H/F 1.1-2.5 CM 06/03/2019 Face/Right Procedure: COMPLEX REPAIR OF CHEEK(S); revision of scar; Surgeon: Kallie Izquierdo II, MD; Location: MAIN OR; Service: PLS - PLASTIC SURGERY MO EXC B9 LESION MRGN XCP SK TG F/E/E/N/L/M 0.5CM/< 01/28/2021 Face/Right Procedure: EXCISION OF BENIGN LESION OF FACE/EAR/EYELID/NOSE/LIP/MUCO US MEMB, INCL MARGINS (EXCEPT SKIN TAG); Surgeon: Kallie Izquierdo II, MD; Location: MAIN OR; Service: PLS - PLASTIC SURGERY MO REPAIR COMPLEX F/C/C/M/N/AX/G/H/F 1.1-2.5 CM 03/01/2021 Face/Right [...] Follow-Up [facility] [facility], 9th [place] [address] Handy Moreno MD [facility] [place] [address] [email or web address] Health Maintenance Due Date Last Done Comments COVID-19 Vaccine ( - 2023-2 5 season) 2024 Influenza Vaccine (#1) 2024 Pneumococcal Vaccine Aged Out No long er eligible based on patient's age to complete this topic Medical Devices Implanted Type Area Schedule Announcer Device Identifier Shelf Expiration Date Model / Serial / Lot Sheeting Silicone Reinf .040 - [id number] Implanted:Qty: 1 on 02/25/2019 by Kallie Izquierdo II, MD at [facility] Skin/Tissu e [employer] 01/25/2020 S-701-40 / / [id number] Insurance [facility] PPO POS [facility] [place] PPO POS Advance Directives * Full [...] 10:23 AM 03/25/2019 3:20 PM Care Teams Furnace Room Supervisor Relationship Specialty Start Date End Date Benjamín Zhang MD [address] [place] [address] [email or web address] PCP - General Melanoma Surgery 02/04/18 Freddie Topete MD [address] [place] [address] [email or web address] Consulting Physician Radiation Oncology 12/11/20 Handy Moreno MD [address] [place] [phone] [email or web address] Consulting Physician Dermatology 10/25/20 Davin Pendleton APRN [address] [place] [phone] [email or web address] Nurse Practitioner Neurosurgery 12/26/20
[2024-12-14 14:25] LABS: Absolute Basophils 0.1 K/uL (0-0.5); Absolute Eosinophils 0.1 K/uL (0-0.5); Absolute Lymphocytes (CBC) 1.9 K/uL (0.7-4.9); Absolute Monocytes 0.3 K/uL (0.1-1.3); Absolute Neutrophil 5.3 K/uL (1.8-8.0); Basophils % 0.8 % (0-1.3); Eosinophils % 1.2 % (0-4.4); Hematocrit 41.8 % (36.0-45.0); Hemoglobin 14.2 g/dL (12.0-15.0); MCV 88.2 fL (80-100); MPV 9.2 fL (7.6-11.3); Monocytes % 4.3 % (3.3-12.3); Neutrophils % 68.7 % (41.7-73.7); Platelets 195 thou/uL (152-406); RBC Red Blood Cell Count 4.73 M/uL (3.86-4.86); Red Cell Distribution Width 13.4 % (12.1-15.2)
[2024-12-14 14:26] LABS: Urine Bilirubin NEGATIVE (Negative); Urine Blood Negative (Negative); Urine Clarity Clear (Clear); Urine Color Yellow (Yellow); Urine Glucose NEGATIVE (Negative); Urine Ketones NEGATIVE (Negative); Urine Microscopic Reflex YN NO UMIC; Urine Nitrite NEGATIVE (Negative); Urine Protein NEGATIVE (Negative); Urine Urobilinogen Normal (Normal); Urine pH 5.5 (5.0-7.0)
[2024-12-14 14:56] LABS: Albumin 4.1 g/dL (3.4-5.0); Albumin/Globulin Ratio 1.1 (1.1-1.8); Anion Gap 8.9 mEq/L (5.0-15.0); Bilirubin Total 0.6 mg/dL (0.2-1.0); Globulin 3.6 g/dL (2.3-3.5); Potassium 3.9 mEq/L (3.5-5.1); Protein, Total 7.7 g/dL (6.4-8.2)
[2024-12-14] MEDS ORDERED: LACTULOSE 20 GM/30 ML UCUP ONE ×2 (15:52→16:29)
[2024-12-14] MEDS ORDERED: NA CHLORIDE 0.9% 1,000 ML ONE (15:52)
[2024-12-14] MEDS ORDERED: KETOROLAC 30 MG/ML INJ ONE (15:52)
[2024-12-14] MEDS ORDERED: ONDANSETRON 4 MG/2 ML VIAL ONE (16:29)
--- NOTE | 2024-12-14 16:32 | RAD REPORT ---
EXAMINATION: CT ABDOMEN AND PELVIS WITH CONTRAST CLINICAL INDICATION: ABD PAIN TECHNIQUE: CT abdomen and pelvis was performed, after the administration of IV contrast, as per [facility] protocol. Axial, sagittal and coronal reconstructions were obtained. One or more of the following dose reduction techniques were used: Automated exposure control, adjustment of the mA and k V according to patient size, and iterative reconstruction. Unless otherwise specified, incidental findings do not require dedicated imaging follow-up. COMPARISON: No prior exam. FINDINGS: LOWER CHEST: The visualized lung bases are clear. LIVER: Normal in size and contour. No focal lesion. Grossly unremarkable gallbladder. SPLEEN: Normal size. No focal lesion. PANCREAS: No mass, ductal dilation, or henry-pancreatic fluid. ADRENALS: Normal; no mass. KIDNEYS: Normal size and contour. No hydronephrosis. GASTROINTESTINAL TRACT: No evidence of free air, significant intra-abdominal free fluid, bowel obstru ction or abscess. There is moderately severe rectosigmoid and proximal colonic wall thickening compatible with colitis. APPENDIX: Normal appendix. LYMPH NODES: No lymphadenopathy. MUSCULOSKELETAL: No acute or suspicious osseous abnormality. IMPRESSION: Moderately severe colitis pattern particularly involving the rectosigmoid colon. This may be infectio us or related to inflammatory bowel disease. Follow-up colonoscopy would be suggested visualization.
--- NOTE | 2024-12-14 17:06 | ER ---
Nurse's Notes [facility] Name: Alison Sheppard Age: 29 yrs Sex: Female : 1995 Arrival Date: 12/14/2024 Time: 12:50 Bed 19 Private MD: Diagnosis: Indeterminate colitis-moderately severe rectosigmoid colon Presentation: 12/14 13:11 Chief complaint: Patient states: having right side abd pain , was seen in ER Thursday , iw they ruled out appendicitis, has not had a BM for 7 days, they did a CT but they said she might need a pelvic US but it would take several hours more of waiting , the report on CT said moderate stool burden , pain started on Thursday. Coronavirus screen: At this time, the client does not indicate any symptoms associated with coronavirus-19. Ebola Screen: No symptoms or risks identified at this time. Initial Sepsis Screen: Does the patient meet any 2 criteria? No. Patient's initial sepsis screen is negative. Does the patient have a suspected source of infection? No. Patient's initial sepsis screen is negative. Risk Assessment: Do you want to hurt yourself or someone else? Patient reports no desire to harm self or others. 13:11 Method Of Arrival: Ambulatory iw 13:11 Acuity: ALESSANDRA 3 iw 13:15 Onset of symptoms. 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 - Infectious Disease History:: Denies. - Social history:: Smoking status: Patient denies any tobacco usage or history of. Screenin:00 [facility] ED Fall Risk Assessment (Adult) History of falling in the last 3 months, me1 including since admission No falls in past 3 months (0 pts) Confusion or Disorientation No (0 pts) Intoxicated or Sedated No (0 pts) Impaired Gait No (0 pts) Mobility Assist Device Used No (0 pt) Altered Elimination No (0 pt) Score/Fall Risk Level 0 - 2 = Low Risk Maintained a safe environment, Provided non-skid footwear, Hourly rounding (assess needs \T\ fall precautionary measures) done. Abuse screen: Denies threats or abuse. Nutritional screening: No deficits noted. Tuberculosis screening: No symptoms or risk factors identified. Assessment: 15:44 Reassessment: Patient and/or family updated on plan of care and expected duration. Pain ll1 level reassessed. 16:00 General: Appears uncomfortable, ill, well groomed, well developed, well nourished, me1 Behavior is calm, cooperative, appropriate for age, Reports having right side abd pain , was seen in ER Thursday , they ruled out appendicitis, has not had a BM for 7 days, they did a CT but they said she might need a pelvic US but it would take several hours more of waiting , the report on CT said moderate stool burden , pain started on Thursday. Pain: Complains of pain in right upper quadrant and right lower quadrant Pain does not radiate. Pain currently is 10 out of 10 on a pain scale. Quality of pain is described as sharp, Pain began 2-3 days ago. Is continuous. Neuro: Level of Consciousness is awake, alert, obeys commands, Oriented to person, place, time, situation, Appropriate for age. Cardiovascular: Patient's skin is warm and dry. Respiratory: Airway is patent Respiratory effort is even, unlabored, Respiratory pattern is regular, symmetrical. GI: Abdomen is non-distended, Reports lower abdominal pain, upper abdominal pain, constipation. : No signs and/or symptoms were reported regarding the genitourinary system. EENT: No signs and/or symptoms were reported regarding the EENT system. Derm: Skin is intact, is healthy with good turgor, Skin is pink, warm \T\ dry. Musculoskeletal: No signs and/or symptoms reported regarding the musculoskeletal system. 20:39 Reassessment: Report given to GLADYS Weiner at [facility]. 4th floor. me1 Vital Signs: 13:11 BP 122 / 89; Pulse 92; Resp 18; Temp 98.3; Pulse Ox 97% on R/A; Weight 70.76 kg; Height iw 5 ft. 1 in. ; Pain 10/10; 16:00 BP 130 / 95; Pulse 82; Resp 16; Pulse Ox 98% ; me1 17:00 BP 134 / 80; Pulse 75; Resp 16; Pulse Ox 99% ; me1 18:00 BP 119 / 68; Pulse 83; Resp 14; Pulse Ox 99% ; me1 18:59 Pain 4/10; me1 19:00 BP 120 / 81; Pulse 89; Resp 16; Pulse Ox 98% ; me1 20:00 BP 108 / 59; Pulse 79; Resp 17; Pulse Ox 98% ; me1 21:00 BP 136 / 87; Pulse 92; Resp 16; Temp 98.4; Pulse Ox 99% ; me1 13:11 Body Mass Index 29.48 (70.76 kg, 154.94 cm) iw 13:11 Pain Scale: Adult iw 18:59 Pain Scale: Adult [facility] ED Course: 12:56 Patient arrived in ED. cj3 13:15 Triage completed. iw 13:17 Garrett Webb PA is PHCP. cp 13:17 Garrett Owen MD is Attending Physician. cp 13:17 Arm band placed on. iw 13:44 Patricia Griggs, RN is Primary Nurse. ph 14:12 CBC with Diff Sent. bc6 14:12 CMP Sent. bc6 14:12 Lipase Sent. bc6 14:12 Test, Urine Sent. bc6 14:12 Urinalysis w/ reflexes Sent. bc6 15:44 Patient placed in an exam room, on a stretcher. ll1 15:46 Catherine Reagan, RN is Primary Nurse. me1 16:00 Patient has correct armband on for positive identification. Bed in low position. Call [facility] light in reach. Side rails up X2. Provided Education on: POC. Verbalized understanding.. Client placed on continuous cardiac and pulse oximetry monitoring. NIBP monitoring applied. Pulse ox on. NIBP on. 16:00 No provider procedures requiring assistance completed. Initial lab(s) drawn, by ED [facility] staff, sent to lab. Inserted saline lock: 20 gauge in left antecubital area, using aseptic technique. 16:22 CT Abd/Pelvis - PO and IV Contrast In Process Unspecified. EDMS 17:05 Stool Culture Sent. me1 17:05 Rotavirus Antigen Sent. me1 17:05 Ova And Parasites Sent. me1 17:05 Fecal Leukocyte Stain Sent. me1 17:28 First set of blood cultures drawn by ia. me1 17:31 Blood Culture Adult (2) Sent. me1 17:31 Lactate w/ 2H reflex if indic. Sent. me1 21:22 Patient transferred, IV remains in place. me1 Administered Medications: 16:00 Drug: NS 0.9% IV 1000 ml IV at 1 bolus Per protocol; to be given as a bolus over 60 me1 minutes Route: IV; Rate: 1 bolus; Site: left antecubital; 18:34 Follow up: Response: No adverse reaction; IV Status: Completed infusion; IV Intake: me1 1000ml 16:00 Not Given (Patient Refused; patient just had a large bmm): [id number] grams 45 ml PO me1 once 16:00 Drug: Ketorolac IVP 15 mg IVP once Route: IVP; Site: left antecubital; me1 16:45 Follow up: Response: No adverse reaction; Pain is decreased me1 16:35 Drug: Lactulose PO 30 grams 45 ml PO once Volume: 45 ml; Route: PO; me1 16:46 Follow up: Response: No adverse reaction; Marked relief of symptoms me1 16:35 Drug: Ondansetron IVP 4 mg IVP once; over 2 minutes Route: IVP; Site: left antecubital; me1 16:46 Follow up: Response: No adverse reaction; Nausea is decreased me1 17:53 Drug: Piperacillin-Tazobactam IVPB 3.375 grams IVPB once over 60 mins; (mix in NS 100 me1 mL) Route: IVPB; Infused Over: 60 mins; Site: left antecubital; 18:34 Follow up: IV Status: Completed infusion; IV Intake: 100ml me1 18:34 Drug: morphine IVP or IV 4 mg IVP once over 4 mins Route: IVP; Infused Over: 4 mins; me1 Site: left antecubital; 18:59 Follow up: Pain 4/10 Adult; Response: No adverse reaction; Pain is decreased me1 20:53 Drug: Ativan IVP 1 mg IVP once Route: IVP; Site: left antecubital; me1 20:57 Follow up: Response: No adverse reaction; Anxiety decreased me1 21:14 Drug: morphine IVP or IV 4 mg IVP once over 4 mins Route: IVP; Infused Over: 4 mins; me1 Site: left antecubital; 21:17 Follow up: Response: No adverse reaction; Pain is decreased me1 Medication: 16:00 VIS not applicable for this client. me1 Intake: 18:34 IV: 100ml; Total: 100ml. me1 18:34 IV: 1000ml; Total: 1100ml. me1 Outcome: 17:06 ER care complete, transfer ordered by . cp 21:22 Transferred by ground EMS to [facility], Note: critical care unit nurse ia1 21:22 Condition: stable 21:22 Instructed on the need for transfer, 21:24 Patient left the ED. ia1 Signatures: Dispatcher [employer] EDBecki Graf RN GLADYS Patricia Griggs RN RN Garrett Freitas PA PA cp Lewis, Lynsay RN RN 1 Reema Coronel 6 Catherine Reagan RN RN ia1 Kasey Chilel cj3 Corrections: (The following items were deleted from the chart) 13:16 13:11 Chief complaint: Patient states: having right side abd pain , was seen in ER iw Thursday , they ruled out appendicitis, has not had a BM for 7 days, they did a CT but they said she might need a pelvic US but it would take several hours more of waiting , the report on CT said possible small bowel obstruction iw 13:17 13:11 BP 122 / 89; Pulse 92bpm; Resp 18bpm; Pulse Ox 97% RA; Temp 98.3F; 70.76 kg; iw Height 5 ft. 1 in.; BMI: 29.4; iw 16:06 13:11 Chief complaint: Patient states: having right side abd pain , was seen in ER ia1 Thursday , they ruled out appendicitis, has not had a BM for 7 days, they did a CT but they said she might need a pelvic US but it would take several hours more of waiting , the report on CT said moderate stool burden , pain started on Thursday iw 19:10 17:05 C.difficile GDH Ag \T\ Toxin AB+LAB.BRZ drawn and sent. [facility] EDCT
--- NOTE | 2024-12-14 17:07 | EDPHYS ---
Physician Documentation [facility] Name: Alison Sheppard Age: 29 yrs Sex: Female : 1995 Arrival Date: 12/14/2024 Time: 12:50 Bed 19 Private MD: ED Physician Garrett Owen HPI: 12/14 13:25 This 29 yrs old Female presents to ER via Ambulatory with complaints of RT Abdominal cp Pain, Nausea/Vomiting. 13:25 The patient presents with abdominal pain right side of abdomen. cp 13:25 Onset: The symptoms/episode began/occurred this past Thursday, was seen in another Ed cp and had CT scan of abdomen. Pain worse and having constipation. 13:25 Associated signs and symptoms: Pertinent positives: anorexia, Pertinent negatives: cp diarrhea, fever, shortness of breath, vomiting. The symptoms are described as constant. 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 - Infectious Disease History:: Denies. - Social history:: Smoking status: Patient denies any tobacco usage or history of. ROS: 13:30 Abdomen/GI: Positive for abdominal pain, constipation, Negative for vomiting, diarrhea, cp black/tarry stool, rectal bleeding, 13:30 Constitutional: Negative for fever, cp 13:30 Eyes: Negative for injury, pain, redness, and discharge, cp 13:30 ENT: Negative for drainage from ear(s), ear pain, sore throat, difficulty swallowing, difficulty handling secretions, 13:30 Cardiovascular: Negative for chest pain, edema, palpitations, 13:30 Respiratory: Negative for cough, shortness of breath, wheezing, 13:30 Neuro: Negative for altered mental status, headache, cp 13:30 All other systems are negative, Exam: 13:35 Constitutional: The patient appears in no acute distress, alert, awake, cp non-diaphoretic, non-toxic, well developed, well nourished, uncomfortable, 13:35 Head/Face: Normocephalic, atraumatic. cp 13:35 Eyes: Periorbital structures: Conjunctiva: normal, no exudate, no injection, Sclera: no appreciated abnormality, Lids and lashes: appear normal, bilaterally, 13:35 ENT: External ear(s): are unremarkable, Nose: is normal, Mouth: Lips: moist, Oral mucosa: moist, Posterior pharynx: Airway: no evidence of obstruction, patent, 13:35 Chest/axilla: Inspection: normal, 13:35 Cardiovascular: Rate: normal, Rhythm: regular, 13:35 Respiratory: the patient does not display signs of respiratory distress, Respirations: normal, no use of accessory muscles, no retractions, labored breathing, is not present, Breath sounds: are clear throughout, no decreased breath sounds, no stridor, no wheezing, 13:35 Abdomen/GI: Inspection: abdomen appears normal, Bowel sounds: active, all quadrants, Palpation: soft, in all quadrants, moderate abdominal tenderness, in the right upper quadrant and right lower quadrant, rebound tenderness, is not appreciated, involuntary guarding, is not appreciated, 13:35 Back: CVA tenderness, is absent, 13:35 Neuro: Orientation: to person, place \T\ time. Mentation: is normal, Motor: moves all fours, strength is normal, Gait: is steady, Vital Signs: 13:11 BP 122 / 89; Pulse 92; Resp 18; Temp 98.3; Pulse Ox 97% on R/A; Weight 70.76 kg; Height iw 5 ft. 1 in. ; Pain 10/10; 16:00 BP 130 / 95; Pulse 82; Resp 16; Pulse Ox 98% ; me1 17:00 BP 134 / 80; Pulse 75; Resp 16; Pulse Ox 99% ; me1 18:00 BP 119 / 68; Pulse 83; Resp 14; Pulse Ox 99% ; me1 18:59 Pain 4/10; me1 19:00 BP 120 / 81; Pulse 89; Resp 16; Pulse Ox 98% ; me1 20:00 BP 108 / 59; Pulse 79; Resp 17; Pulse Ox 98% ; me1 21:00 BP 136 / 87; Pulse 92; Resp 16; Temp 98.4; Pulse Ox 99% ; me1 13:11 Body Mass Index 29.48 (70.76 kg, 154.94 cm) iw 13:11 Pain Scale: Adult iw 18:59 Pain Scale: Adult me1 MDM: 13:20 Medical Screening Exam initiated lisandra 17:10 Data reviewed: vital signs, nurses notes, lab test result(s), radiologic studies, CT cp scan, I have discussed the patient's presentation/case with the attending Emergency Department Physician; and as a result, I will transfer patient. 17:10 Differential diagnosis: appendicitis, cholecystitis, Cholelithiasis, gastritis, cp pancreatitis, Peptic Ulcer Disease, Perf. Duodenal Ulcer, Perf. Gastric Ulcer, Pyelonephritis, Ureterolithiasis, urinary tract infection. I considered the following discharge prescriptions or medication management in the emergency department Medications were administered in the Emergency Department. See MAR. Counseling: I had a detailed discussion with the patient and/or guardian regarding the historical points, exam findings, and any diagnostic results supporting the discharge/admit diagnosis, lab results, radiology results, the need to transfer to another facility, [facility] does not immediately have the required specialist. 20:08 Management of patient was discussed with the following: Hospitalist: DR Campbell, cp hospitalist \T\[facility], will accept patient as transfer after discussion. 12/14 13:23 Order name: CBC with Diff; Complete Time: 14:57 12/14 14:58 Interpretation: Reviewed. 12/14 13:23 Order name: CMP; Complete Time: 14:57 12/14 14:57 Interpretation: Normal except: GLOB 3.6. 12/14 13:23 Order name: Lipase; Complete Time: 14:57 12/14 14:58 Interpretation: Reviewed. 12/14 13:23 Order name: Test, Urine; Complete Time: 14:57 12/14 14:58 Interpretation: Reviewed. 12/14 13:23 Order name: Urinalysis w/ reflexes; Complete Time: 14:57 cp 12/14 14:58 Interpretation: Reviewed. 12/14 16:59 Order name: Fecal Leukocyte Stain 12/14 16:59 Order name: Ova And Parasites 12/14 16:59 Order name: Rotavirus Antigen; Complete Time: 20:05 12/14 16:59 Order name: Stool Culture 12/14 16:59 Order name: Lactate w/ 2H reflex if indic.; Complete Time: 20:05 cp 12/14 16:59 Order name: Blood Culture Adult (2) cp 12/14 13:23 Order name: CT Abd/Pelvis - PO and IV Contrast; Complete Time: 16:47 cp 12/14 13:23 Order name: IV Saline Lock; Complete Time: 14:12 cp 12/14 13:23 Order name: Labs collected and sent; Complete Time: 14:12 cp Administered Medications: 16:00 Drug: NS 0.9% IV 1000 ml IV at 1 bolus Per protocol; to be given as a bolus over 60 me1 minutes Route: IV; Rate: 1 bolus; Site: left antecubital; 18:34 Follow up: Response: No adverse reaction; IV Status: Completed infusion; IV Intake: me1 1000ml 16:00 Not Given (Patient Refused; patient just had a large bmm): [id number] grams 45 ml PO me1 once 16:00 Drug: Ketorolac IVP 15 mg IVP once Route: IVP; Site: left antecubital; me1 16:45 Follow up: Response: No adverse reaction; Pain is decreased me1 16:35 Drug: Lactulose PO 30 grams 45 ml PO once Volume: 45 ml; Route: PO; me1 16:46 Follow up: Response: No adverse reaction; Marked relief of symptoms me1 16:35 Drug: Ondansetron IVP 4 mg IVP once; over 2 minutes Route: IVP; Site: left antecubital; me1 16:46 Follow up: Response: No adverse reaction; Nausea is decreased me1 17:53 Drug: Piperacillin-Tazobactam IVPB 3.375 grams IVPB once over 60 mins; (mix in NS 100 me1 mL) Route: IVPB; Infused Over: 60 mins; Site: left antecubital; 18:34 Follow up: IV Status: Completed infusion; IV Intake: 100ml me1 18:34 Drug: morphine IVP or IV 4 mg IVP once over 4 mins Route: IVP; Infused Over: 4 mins; me1 Site: left antecubital; 18:59 Follow up: Pain 4/10 Adult; Response: No adverse reaction; Pain is decreased me1 20:53 Drug: Ativan IVP 1 mg IVP once Route: IVP; Site: left antecubital; me1 20:57 Follow up: Response: No adverse reaction; Anxiety decreased me1 21:14 Drug: morphine IVP or IV 4 mg IVP once over 4 mins Route: IVP; Infused Over: 4 mins; me1 Site: left antecubital; 21:17 Follow up: Response: No adverse reaction; Pain is decreased me1 Disposition Summary: 12/14/24 17:06 Transfer Ordered Notes: Transfer Location: Other [facility] cp Reason: Higher level of care cp Condition: Stable cp Problem: new cp Symptoms: have improved cp Accepting Physician: DR Campbell(12/14/24 21:24) me1 Diagnosis - Indeterminate colitis - moderately severe rectosigmoid colon cp Forms: - Medication Reconciliation Form cp - SBAR form cp Signatures: Dispatcher [employer] EDMS Garrett Owen MD MD cha Williams, Irene RN GLADYS iw Garrett Webb PA PA cp Eddleman, Michelle, RN RN me1 Corrections: (The following items were deleted from the chart) 13:24 13:24 CBC+H.LAB.BRZ ordered. EDMS EDMS 13:24 13:24 COMPREHENSIVE METABOLIC PANEL+C.LAB.BRZ ordered. EDMS EDMS 13:24 13:24 LIPASE+C.LAB.BRZ ordered. EDMS EDMS 13:24 13:24 Test, Urine+UC.LAB.BRZ ordered. EDMS EDMS 13:24 13:24 Urinalysis+U.LAB.BRZ ordered. EDMS EDMS 13:24 13:24 Abdomen Pelvis W Con+CT.RAD.BRZ ordered. EDMS EDMS 17:00 17:00 Fecal Leukocyte Stain+BA.LAB.BRZ ordered. EDMS EDMS 17:00 17:00 Ova and Parasites+MR.LAB.BRZ ordered. EDMS EDMS 17:00 17:00 Rotavirus Antigen+BA.LAB.BRZ ordered. EDMS EDMS 17:00 17:00 Stool Culture+BA.LAB.BRZ ordered. EDMS EDMS 17:00 17:00 LACTATE+C.LAB.BRZ ordered. EDMS EDMS 17:00 17:00 BLOOD CULTURE*+BA.LAB.BRZ ordered. EDMS EDMS 19:10 17:00 C.difficile GDH Ag \T\ Toxin AB+LAB.BRZ ordered. EDMS EDMS 20:08 17:06 Doctor cp cp 21:24 20:08 DR Campbell cp me1 12/15 20:32 04 13:30 Abdomen/GI: Positive for abdominal pain, constipation, Negative for cp vomiting, diarrhea, cp
[2024-12-14] MEDS ORDERED: NA CHLORIDE 0.9% 100 ML ONE (17:33)
[2024-12-14] MEDS ORDERED: PIPERACIL/TAZO 3.375 GM VIAL IV ONE (17:33)
[2024-12-14] MEDS ORDERED: MORPHINE 4 MG/ML SYR ONE ×2 (18:25→21:12)
[2024-12-14] MEDS ORDERED: LORazepam 2 MG/ML VIAL ONE (19:25)
[2024-12-14 21:45] VITALS: BP 136/87; TEMP 98.4; O2SAT 99
== END 2024-12-14 21:24 | disposition short-term general hospital (02) ==
LOC: ER 12:50
DX: K52.3 Indeterminate colitis (principal)
CPT/HCPCS: 36415; 74177; 80053; 81003; 81025; 83605; 83690; 85025; 87040; 87045; 87046; 87177; 87209; 87425; 89055; J2405; J2543; J7030; Q9967